=== PATIENT | female | born 1945 | race Caucasian/White ===

== ENCOUNTER 2017-05-01 17:29 | Inpatient (IN) | payer MEDICARE, MEDICAID ==
[~2017-05-01] VITALS: Ht 152.4 cm; Wt 221.0 kg
[~2017-05-01 17:29] MED LIST: ACET-784 PO; BENZ1TAB10 PO; HYDR25TA PO; LOSA25TA21 PO; PALI1.5T PO; PROP20 PO; REPA2 PO; TRAZ-144 PO
[2017-05-01] MEDS ORDERED: LORazepam 2 MG TABLET PO PRN (17:45)
[2017-05-01] MEDS ORDERED: HALOPERIDOL 5 MG TABLET PO PRN (17:45)
[2017-05-01 18:46] LABS: GLUCOSE,POINT OF CARE 125 MG/DL (70-110)
[2017-05-01 19:23] VITALS: BP 132/79
[2017-05-01] MEDS ORDERED: INFLUENZA VIRUS VACCINE QVS 2017-18 (3YR+)/PF 60 MCG/0.5 ML SYRINGE IM ONE (20:00)
[2017-05-01] MEDS ORDERED: DEXTROSE 50%-WATER 25 GM/50 ML SYRINGE IVP PRN (22:00)
[2017-05-02] MEDS: ZOLPIDEM TARTRATE 10 MG TABLET PO PRN (01:57)
[2017-05-02 02:41] VITALS: BP 149/89
[2017-05-02 05:52] LABS: GLUCOSE,POINT OF CARE 137 MG/DL (70-110)
[2017-05-02 06:41] LABS: BASOPHILS % (AUTO) 0.9 % (0.0-2.0); EOSINOPHILS % (AUTO) 1.3 % (1.0-6.0); HEMATOCRIT 41.1 % (36-46); HEMOGLOBIN 13.4 g/dL (12.0-16.0); LYMPHOCYTES # (AUTO) 2.2 K/uL (1.0-4.8); LYMPHOCYTES % (AUTO) 31.7 % (22.0-44.0); MEAN CORPUSCULAR HEMOGLOBIN 27.2 pg (26.0-34.0); MEAN CORPUSCULAR HGB CONC 32.6 G/dL (31.0-37.0); MEAN CORPUSCULAR VOLUME 83 fL (80-100); MONOCYTES # (AUTO) 0.5 K/uL (0.1-1.0); MONOCYTES % (AUTO) 7.8 % (2.0-9.0); NEUTROPHILS % (AUTO) 58.3 % (40.0-70.0); PLATELET COUNT (AUTO) 247 K/uL (150-450); RED BLOOD CELL COUNT(AUTO) 4.92 MIL/uL (4.00-5.20); RED CELL DISTRIBUTION WIDTH 15.8 % (11.5-14.5); WHITE BLOOD COUNT (AUTO) 6.8 K/uL (4.5-11.0)
[2017-05-02 06:55] LABS: ALBUMIN 3.4 g/dL (3.4-5.0); BILIRUBIN,TOTAL 0.4 mg/dL (0.1-1.0); CALCIUM, TOTAL 9.4 mg/dL (8.8-10.5); CREATININE 1.16 mg/dL (0.60-1.30); POTASSIUM 4.4 mmol/L (3.5-5.1); TOTAL PROTEIN, SERUM 7.9 g/dL (6.4-8.2)
[2017-05-02 08:00] VITALS: BP 143/90
[2017-05-02] MEDS ORDERED: LOPERAMIDE HCL 2 MG CAPSULE PO PRN (09:15)
[2017-05-02] MEDS ORDERED: BENZOCAINE/MENTHOL LOZENGE [8 LOZENGES/PACKET] MM PRN (09:15)
[2017-05-02] MEDS ORDERED: CloNIDine HCL 0.1 MG TABLET PO PRN (09:15)
[2017-05-02] MEDS ORDERED: ACETAMINOPHEN 325 MG TABLET PO PRN (09:15)
[2017-05-02] MEDS ORDERED: MAGNESIUM HYDROXIDE SUSPENSION 30 ML UDCUP PO PRN (09:15)
[2017-05-02] MEDS ORDERED: IBUPROFEN 600 MG TABLET PO PRN (09:15)
[2017-05-02] MEDS ORDERED: BACITRACIN 28.4 GM OINTMENT TP PRN (09:15)
[2017-05-02] MEDS ORDERED: PETROLATUM,WHITE 71 GM JELLY TP PRN (09:15)
[2017-05-02] MEDS ORDERED: ONDANSETRON HCL 4 MG TABLET PO PRN (09:15)
[2017-05-02] MEDS ORDERED: MAG HYDROX/AL HYDROX/SIMETH ES 30 ML SUSPENSION UDCUP PO PRN (09:15)
[2017-05-02] MEDS ORDERED: ALBUTEROL SULFATE HFA 90 MCG/PUFF 8 GM INHALER IH PRN (09:15)
[2017-05-02] MEDS: LOSARTAN POTASSIUM 25 MG TABLET PO SCH (11:43)
[2017-05-02 11:48] LABS: GLUCOSE,POINT OF CARE 232 MG/DL (70-110)
[2017-05-02] MEDS: INSULIN ASPART 100 UNITS/ML SQ PRN ×2 (12:34→17:18)
[2017-05-02 17:06] VITALS: BP 141/87
[2017-05-02] MEDS: REPAGLINIDE 2 MG TABLET PO SCH (17:13)
[2017-05-02] MEDS: PROPRANOLOL HCL 20 MG TABLET PO SCH (17:14)
[2017-05-02 17:17] LABS: GLUCOSE,POINT OF CARE 141 MG/DL (70-110)
[2017-05-02] MEDS: PALIPERIDONE 3 MG ER TABLET PO SCH (21:31)
[2017-05-02] MEDS: TraZODone HCL 150 MG TABLET PO SCH (21:31)
[2017-05-03 05:37] LABS: GLUCOSE COMMENT 1 Received Meds; GLUCOSE,POINT OF CARE 153 MG/DL (70-110)
[2017-05-03] MEDS: INSULIN ASPART 100 UNITS/ML SQ PRN ×4 (07:01→20:32)
[2017-05-03] MEDS: REPAGLINIDE 2 MG TABLET PO SCH ×2 (07:01→17:20)
[2017-05-03 08:21] VITALS: BP 151/74
[2017-05-03] MEDS: OMEGA-3/DHA/EPA/FISH OIL 1,000 MG CAPSULE PO SCH (09:00)
[2017-05-03] MEDS: LOSARTAN POTASSIUM 25 MG TABLET PO SCH (09:00)
[2017-05-03] MEDS: PROPRANOLOL HCL 20 MG TABLET PO SCH ×3 (09:00→16:27)
[2017-05-03] MEDS: OMEPRAZOLE 20 MG CAPSULE PO SCH (09:00)
[2017-05-03] MEDS: CHOLECALCIFEROL (VIT D3) 1,000 UNITS TABLET PO SCH (09:00)
[2017-05-03] MEDS: DOCUSATE SODIUM 100 MG CAPSULE PO SCH (09:00)
[2017-05-03 11:33] LABS: GLUCOSE COMMENT 1 Received Meds; GLUCOSE,POINT OF CARE 225 MG/DL (70-110)
[2017-05-03 12:08] VITALS: BP 142/89
[2017-05-03 16:32] LABS: GLUCOSE COMMENT 1 Received Meds; GLUCOSE,POINT OF CARE 175 MG/DL (70-110)
[2017-05-03] MEDS: TraZODone HCL 150 MG TABLET PO SCH (20:30)
[2017-05-03] MEDS: PALIPERIDONE 3 MG ER TABLET PO SCH (20:30)
[2017-05-03 20:38] LABS: GLUCOSE COMMENT 1 Received Meds; GLUCOSE,POINT OF CARE 214 MG/DL (70-110)
[2017-05-04 05:33] LABS: GLUCOSE,POINT OF CARE 173 MG/DL (70-110)
[2017-05-04] MEDS: REPAGLINIDE 2 MG TABLET PO SCH ×2 (06:38→16:59)
[2017-05-04] MEDS: INSULIN ASPART 100 UNITS/ML SQ PRN ×4 (06:45→21:59)
[2017-05-04 08:30] VITALS: BP 128/65
[2017-05-04] MEDS: OMEPRAZOLE 20 MG CAPSULE PO SCH ×2 (09:00→11:45)
[2017-05-04] MEDS: OMEGA-3/DHA/EPA/FISH OIL 1,000 MG CAPSULE PO SCH ×2 (09:00→11:44)
[2017-05-04] MEDS: LOSARTAN POTASSIUM 25 MG TABLET PO SCH ×2 (09:00→11:44)
[2017-05-04] MEDS: PROPRANOLOL HCL 20 MG TABLET PO SCH ×3 (09:00→17:00)
[2017-05-04] MEDS: DOCUSATE SODIUM 100 MG CAPSULE PO SCH ×2 (09:00→11:44)
[2017-05-04] MEDS: CHOLECALCIFEROL (VIT D3) 1,000 UNITS TABLET PO SCH ×2 (09:00→11:44)
[2017-05-04 11:35] VITALS: BP 167/81
[2017-05-04 11:43] LABS: GLUCOSE,POINT OF CARE 251 MG/DL (70-110)
[2017-05-04 13:31] VITALS: BP 140/84
[2017-05-04 16:37] VITALS: BP 131/80
[2017-05-04 17:02] LABS: GLUCOSE,POINT OF CARE 220 MG/DL (70-110)
[2017-05-04] MEDS: PALIPERIDONE 3 MG ER TABLET PO SCH (21:58)
[2017-05-04] MEDS: TraZODone HCL 150 MG TABLET PO SCH (21:58)
[2017-05-04 22:02] LABS: GLUCOSE,POINT OF CARE 165 MG/DL (70-110)
[2017-05-05 05:33] LABS: GLUCOSE COMMENT 1 Received Meds; GLUCOSE,POINT OF CARE 141 MG/DL (70-110)
[2017-05-05] MEDS: REPAGLINIDE 2 MG TABLET PO SCH ×2 (07:04→17:02)
[2017-05-05] MEDS: INSULIN ASPART 100 UNITS/ML SQ PRN ×4 (07:06→21:10)
[2017-05-05 09:18] LABS: CALCIUM, TOTAL 8.8 mg/dL (8.8-10.5); CREATININE 1.11 mg/dL (0.60-1.30); POTASSIUM 4.5 mmol/L (3.5-5.1)
[2017-05-05 09:50] VITALS: BP 167/90
[2017-05-05] MEDS: OMEGA-3/DHA/EPA/FISH OIL 1,000 MG CAPSULE PO SCH (09:53)
[2017-05-05] MEDS: PROPRANOLOL HCL 20 MG TABLET PO SCH ×3 (09:54→17:02)
[2017-05-05] MEDS: LOSARTAN POTASSIUM 25 MG TABLET PO SCH (09:54)
[2017-05-05] MEDS: OMEPRAZOLE 20 MG CAPSULE PO SCH (09:54)
[2017-05-05] MEDS: CHOLECALCIFEROL (VIT D3) 1,000 UNITS TABLET PO SCH (09:54)
[2017-05-05] MEDS: DOCUSATE SODIUM 100 MG CAPSULE PO SCH (09:55)
[2017-05-05 11:23] LABS: GLUCOSE,POINT OF CARE 183 MG/DL (70-110)
[2017-05-05 13:15] VITALS: BP 127/60
[2017-05-05 16:41] VITALS: BP 143/79
[2017-05-05 17:22] LABS: GLUCOSE,POINT OF CARE 197 MG/DL (70-110)
[2017-05-05] MEDS: TraZODone HCL 150 MG TABLET PO SCH (21:10)
[2017-05-05] MEDS: PALIPERIDONE 3 MG ER TABLET PO SCH (21:10)
[2017-05-05 21:13] LABS: GLUCOSE,POINT OF CARE 245 MG/DL (70-110)
[2017-05-06 06:19] VITALS: BP 160/83
[2017-05-06] MEDS: REPAGLINIDE 2 MG TABLET PO SCH ×2 (06:49→17:02)
[2017-05-06] MEDS: INSULIN ASPART 100 UNITS/ML SQ PRN ×4 (06:50→21:06)
[2017-05-06 07:07] LABS: GLUCOSE COMMENT 1 Received Meds; GLUCOSE,POINT OF CARE 151 MG/DL (70-110)
[2017-05-06] MEDS ORDERED: LOSARTAN POTASSIUM 25 MG TABLET PO SCH (09:00)
[2017-05-06] MEDS: OMEPRAZOLE 20 MG CAPSULE PO SCH (10:21)
[2017-05-06] MEDS: DOCUSATE SODIUM 100 MG CAPSULE PO SCH (10:21)
[2017-05-06] MEDS: CHOLECALCIFEROL (VIT D3) 1,000 UNITS TABLET PO SCH (10:21)
[2017-05-06] MEDS: PROPRANOLOL HCL 20 MG TABLET PO SCH ×3 (10:22→17:01)
[2017-05-06] MEDS: LOSARTAN POTASSIUM 25 MG TABLET PO SCH (10:22)
[2017-05-06] MEDS: OMEGA-3/DHA/EPA/FISH OIL 1,000 MG CAPSULE PO SCH (10:22)
[2017-05-06 12:17] LABS: GLUCOSE,POINT OF CARE 252 MG/DL (70-110)
[2017-05-06 14:22] VITALS: BP 140/99
[2017-05-06 17:12] LABS: GLUCOSE COMMENT 1 Received Meds; GLUCOSE,POINT OF CARE 200 MG/DL (70-110)
[2017-05-06] MEDS: TraZODone HCL 150 MG TABLET PO SCH (20:25)
[2017-05-06] MEDS: PALIPERIDONE 3 MG ER TABLET PO SCH (20:26)
[2017-05-06 20:47] LABS: GLUCOSE,POINT OF CARE 140 MG/DL (70-110)
[2017-05-06 21:33] VITALS: BP 157/76
[2017-05-07 03:24] VITALS: BP 159/76
[2017-05-07 05:37] LABS: GLUCOSE COMMENT 1 Received Meds; GLUCOSE,POINT OF CARE 187 MG/DL (70-110)
[2017-05-07] MEDS: REPAGLINIDE 2 MG TABLET PO SCH ×2 (06:56→17:29)
[2017-05-07] MEDS: INSULIN ASPART 100 UNITS/ML SQ PRN ×3 (06:59→17:48)
[2017-05-07 08:05] VITALS: BP 134/83
[2017-05-07] MEDS: PROPRANOLOL HCL 20 MG TABLET PO SCH ×3 (10:06→17:28)
[2017-05-07] MEDS: OMEGA-3/DHA/EPA/FISH OIL 1,000 MG CAPSULE PO SCH (10:07)
[2017-05-07] MEDS: CHOLECALCIFEROL (VIT D3) 1,000 UNITS TABLET PO SCH (10:07)
[2017-05-07] MEDS: OMEPRAZOLE 20 MG CAPSULE PO SCH (10:07)
[2017-05-07] MEDS: DOCUSATE SODIUM 100 MG CAPSULE PO SCH (10:08)
[2017-05-07 11:02] LABS: GLUCOSE,POINT OF CARE 348 MG/DL (70-110)
[2017-05-07] MEDS: LOSARTAN POTASSIUM 25 MG TABLET PO SCH (11:44)
[2017-05-07 16:15] VITALS: BP 150/70
[2017-05-07 17:38] LABS: GLUCOSE COMMENT 1 FASTING; GLUCOSE,POINT OF CARE 184 MG/DL (70-110)
[2017-05-07] MEDS: PALIPERIDONE 3 MG ER TABLET PO SCH (21:20)
[2017-05-07] MEDS: TraZODone HCL 150 MG TABLET PO SCH (21:20)
[2017-05-08 03:15] VITALS: BP 182/99
[2017-05-08] MEDS: ZOLPIDEM TARTRATE 10 MG TABLET PO PRN (03:36)
[2017-05-08 04:00] VITALS: BP 134/92
[2017-05-08 06:38] LABS: GLUCOSE,POINT OF CARE 135 MG/DL (70-110)
[2017-05-08] MEDS: REPAGLINIDE 2 MG TABLET PO SCH ×2 (06:47→16:19)
[2017-05-08 08:05] VITALS: BP 138/82
[2017-05-08] MEDS: DOCUSATE SODIUM 100 MG CAPSULE PO SCH (09:00)
[2017-05-08] MEDS: OMEGA-3/DHA/EPA/FISH OIL 1,000 MG CAPSULE PO SCH (09:10)
[2017-05-08] MEDS: LOSARTAN POTASSIUM 25 MG TABLET PO SCH (09:10)
[2017-05-08] MEDS: PROPRANOLOL HCL 20 MG TABLET PO SCH ×3 (09:10→16:19)
[2017-05-08] MEDS: OMEPRAZOLE 20 MG CAPSULE PO SCH (09:10)
[2017-05-08] MEDS: CHOLECALCIFEROL (VIT D3) 1,000 UNITS TABLET PO SCH (09:10)
[2017-05-08 16:27] LABS: GLUCOSE COMMENT 1 FASTING; GLUCOSE COMMENT 2 Received Meds; GLUCOSE,POINT OF CARE 235 MG/DL (70-110)
[2017-05-08 16:46] VITALS: BP 145/78
[2017-05-08] MEDS: INSULIN ASPART 100 UNITS/ML SQ PRN ×2 (17:40→21:19)
[2017-05-08] MEDS: TraZODone HCL 150 MG TABLET PO SCH (20:23)
[2017-05-08] MEDS: PALIPERIDONE 3 MG ER TABLET PO SCH (20:24)
[2017-05-08 21:17] LABS: GLUCOSE COMMENT 1 FASTING; GLUCOSE,POINT OF CARE 283 MG/DL (70-110)
[2017-05-08] MEDS ORDERED: PALI3 PO (23:11)
[2017-05-08] MEDS ORDERED: OMEP20 PO (23:15)
[2017-05-08] MEDS ORDERED: DSS100 PO (23:15)
[2017-05-08] MEDS ORDERED: OMEG-135 PO (23:16)
[2017-05-08] MEDS ORDERED: VITAD1000 PO (23:17)
[2017-05-09 04:25] VITALS: BP 122/64
[2017-05-09 05:42] LABS: GLUCOSE COMMENT 1 Received Meds; GLUCOSE,POINT OF CARE 143 MG/DL (70-110)
[2017-05-09] MEDS: REPAGLINIDE 2 MG TABLET PO SCH (06:46)
[2017-05-09] MEDS: INSULIN ASPART 100 UNITS/ML SQ PRN (06:55)
[2017-05-09 08:20] VITALS: BP 138/64
[2017-05-09] MEDS: PROPRANOLOL HCL 20 MG TABLET PO SCH ×2 (08:22→12:09)
[2017-05-09] MEDS: OMEGA-3/DHA/EPA/FISH OIL 1,000 MG CAPSULE PO SCH (08:22)
[2017-05-09] MEDS: LOSARTAN POTASSIUM 25 MG TABLET PO SCH (08:22)
[2017-05-09] MEDS: DOCUSATE SODIUM 100 MG CAPSULE PO SCH (08:24)
[2017-05-09] MEDS: CHOLECALCIFEROL (VIT D3) 1,000 UNITS TABLET PO SCH (08:24)
[2017-05-09] MEDS: OMEPRAZOLE 20 MG CAPSULE PO SCH (08:25)
[2017-05-09 10:57] LABS: GLUCOSE COMMENT 1 Received Meds; GLUCOSE,POINT OF CARE 193 MG/DL (70-110)
== END 2017-05-09 14:00 | disposition home or self-care (01) | DRG 750 ==
LOC: 3EX 17:44 → 3EI 20:50
PROVIDERS: ADMIT Psychiatry & Neurology Psychiatry; ATTEND Psychiatry & Neurology Psychiatry
DX: F25.9 Schizoaffective disorder, unspecified (principal); E11.22 Type 2 diabetes mellitus with diabetic chronic kidney disease; E11.65 Type 2 diabetes mellitus with hyperglycemia; N18.3 Chronic kidney disease, stage 3 (moderate); I12.9 Hypertensive chronic kidney disease with stage 1 through stage 4 chronic kidney disease, or unspecified chronic kidney disease; E55.9 Vitamin D deficiency, unspecified; E03.9 Hypothyroidism, unspecified; E78.5 Hyperlipidemia, unspecified; R26.9 Unspecified abnormalities of gait and mobility; F32.9 Major depressive disorder, single episode, unspecified; G47.00 Insomnia, unspecified; M19.90 Unspecified osteoarthritis, unspecified site; K59.00 Constipation, unspecified; Z28.21 Immunization not carried out because of patient refusal; Z56.0 Unemployment, unspecified; Z79.899 Other long term (current) drug therapy
CPT/HCPCS: 82962

== ENCOUNTER 2017-05-10 21:54 | Emergency (ER) | payer MEDICARE, OTHER ==
[~2017-05-10] VITALS: Ht 157.5 cm; Wt 100.0 kg
[~2017-05-10 21:54] MED LIST changes: -ACET-784 PO; -BENZ1TAB10 PO; +DSS100 PO; -HYDR25TA PO; +OMEG-135 PO; +OMEP20 PO; -PALI1.5T PO; +PALI3 PO; +VITAD1000 PO
[2017-05-10 22:13] LABS: GLUCOSE,POINT OF CARE 105 MG/DL (70-110)
[2017-05-10] MEDS ORDERED: ACETAMINOPHEN 325 MG TABLET PO ONE (22:15)
[2017-05-10 23:03] LABS: EOSINOPHILS % (AUTO) 0.2 % (1.0-6.0); HEMATOCRIT 34.2 % (36-46); HEMOGLOBIN 11.3 g/dL (12.0-16.0); LYMPHOCYTES # (AUTO) 1.2 K/uL (1.0-4.8); LYMPHOCYTES % (AUTO) 16.9 % (22.0-44.0); MEAN CORPUSCULAR HEMOGLOBIN 27.3 pg (26.0-34.0); MEAN CORPUSCULAR HGB CONC 33.2 G/dL (31.0-37.0); MEAN CORPUSCULAR VOLUME 82 fL (80-100); MONOCYTES % (AUTO) 13.2 % (2.0-9.0); NEUTROPHILS # (AUTO) 5.1 K/uL (1.8-7.7); NEUTROPHILS % (AUTO) 69.7 % (40.0-70.0); PLATELET COUNT (AUTO) 168 K/uL (150-450); RED BLOOD CELL COUNT(AUTO) 4.16 MIL/uL (4.00-5.20); WHITE BLOOD COUNT (AUTO) 7.3 K/uL (4.5-11.0)
[2017-05-10 23:20] LABS: CALCIUM, TOTAL 8.7 mg/dL (8.8-10.5); CREATININE 1.14 mg/dL (0.60-1.30); POTASSIUM 4.2 mmol/L (3.5-5.1)
[2017-05-10] MEDS ORDERED: SODIUM CHLORIDE 0.9% 500 ML IV ONE (23:45)
[2017-05-10 23:51] LABS: ALBUMIN 2.8 g/dL (3.4-5.0); BILIRUBIN,TOTAL 0.4 mg/dL (0.1-1.0); ORIG DRAW (USER) PTCARESTAF; TOTAL PROTEIN, SERUM 6.7 g/dL (6.4-8.2)
[2017-05-11 01:21] LABS: INFLUENZA TYPE B NEGATIVE FOR TYPE B (NEGATIVE)
[2017-05-11 01:28] LABS: APPEARANCE,URINE CLEAR (CLEAR); GLUCOSE, URINE (UA) 500 mg/dL (NEGATIVE); KETONES,URINE 15 mg/dL (NEGATIVE); LEUKOCYTE ESTERASE ,URINE NEGATIVE (NEGATIVE); OCCULT BLOOD,URINE SMALL (NEGATIVE); PROTEIN,URINE POS 1+ (NEGATIVE)
[2017-05-11 01:36] LABS: RBC,URINE 0-2 /HPF (0-2); SQUAMOUS EPITHELIAL CELL,UR Few /LPF (None Seen); WBC,URINE 0-2 /HPF (0-5)
[2017-05-11 02:00] VITALS: BP 132/70
== END 2017-05-11 02:34 | disposition home or self-care (01) ==
LOC: EMS 21:55
DX: J06.9 Acute upper respiratory infection, unspecified (principal); J40 Bronchitis, not specified as acute or chronic; I10 Essential (primary) hypertension; E11.9 Type 2 diabetes mellitus without complications; K21.9 Gastro-esophageal reflux disease without esophagitis
CPT/HCPCS: 36415; 71010; 80053; 81001; 82962; 83605; 83690; 83880; 84484; 85025; 87040; 87804; 96360; 99285; J7040

== ENCOUNTER 2017-05-15 12:02 | Emergency (ER) | payer MEDICARE, OTHER ==
[~2017-05-15] VITALS: Ht 157.5 cm; Wt 100.0 kg
[2017-05-15 12:32] LABS: GLUCOSE,POINT OF CARE 124 MG/DL (70-110)
[2017-05-15 14:02] LABS: APPEARANCE,URINE CLOUDY (CLEAR); BILIRUBIN,URINE NEGATIVE (NEGATIVE); GLUCOSE, URINE (UA) >=1000 mg/dL (NEGATIVE); KETONES,URINE NEGATIVE (NEGATIVE); NITRATE,URINE POSITIVE (NEGATIVE); OCCULT BLOOD,URINE SMALL (NEGATIVE); PROTEIN,URINE SEE CONFIRM (NEGATIVE)
[2017-05-15 14:06] LABS: AMPHET/METH SCREEN,URINE NEGATIVE (NEGATIVE); BARBITURATE SCREEN, URINE NEGATIVE (NEGATIVE); BENZODIAZEPINES SCREEN,URINE NEGATIVE (NEGATIVE); CANNABINOID SCREEN,URINE NEGATIVE (NEGATIVE); COCAINE SCREEN,URINE NEGATIVE (NEGATIVE); METHADONE SCREEN, URINE NEGATIVE (NEGATIVE); OPIATE SCREEN,URINE NEGATIVE (NEGATIVE)
[2017-05-15 14:07] LABS: PHENCYCLIDINE SCREEN,URINE NEGATIVE (NEGATIVE)
[2017-05-15 14:13] LABS: BACTERIA,URINE Many /HPF (None Seen); LEUKOCYTE ESTERASE ,URINE MODERATE (NEGATIVE); SULFOSALICYLIC ACID,URINE 2+ (Negative)
[2017-05-15 14:14] LABS: SQUAMOUS EPITHELIAL CELL,UR Few /LPF (None Seen)
[2017-05-15 14:16] LABS: BASOPHILS % (AUTO) 0.3 % (0.0-2.0); EOSINOPHILS % (AUTO) 0.5 % (1.0-6.0); HEMATOCRIT 35.5 % (36-46); HEMOGLOBIN 11.7 g/dL (12.0-16.0); LYMPHOCYTES # (AUTO) 2.5 K/uL (1.0-4.8); LYMPHOCYTES % (AUTO) 43.5 % (22.0-44.0); MEAN CORPUSCULAR HEMOGLOBIN 27.2 pg (26.0-34.0); MEAN CORPUSCULAR HGB CONC 32.9 G/dL (31.0-37.0); MEAN CORPUSCULAR VOLUME 83 fL (80-100); MONOCYTES # (AUTO) 0.6 K/uL (0.1-1.0); NEUTROPHILS # (AUTO) 2.5 K/uL (1.8-7.7); NEUTROPHILS % (AUTO) 44.7 % (40.0-70.0); PLATELET COUNT (AUTO) 200 K/uL (150-450); RED BLOOD CELL COUNT(AUTO) 4.29 MIL/uL (4.00-5.20)
[2017-05-15] MEDS ORDERED: LIDOCAINE HCL/PF 1% 2 ML VIAL IM ONE (14:30)
[2017-05-15] MEDS ORDERED: CefTRIAXone SODIUM 1 GM/VIAL IM ONE (14:30)
[2017-05-15 14:34] LABS: ANION GAP 11 mmol/L (8-16); CALCIUM, TOTAL 8.4 mg/dL (8.8-10.5); CARBON DIOXIDE 26 mmol/L (22-29); CHLORIDE 106 mmol/L (98-107); CREATININE 0.99 mg/dL (0.60-1.30); GLOMERULAR FILTR. RATE CALC 55 mL/min (>60); GLUCOSE,RANDOM 85 mg/dL (70-110); POTASSIUM 3.8 mmol/L (3.5-5.1); SODIUM SERUM 143 mmol/L (136-145); UREA NITROGEN, BLOOD 13 mg/dL (7-18)
[2017-05-15 14:37] LABS: ALANINE AMINOTRANSFERASE 28 U/L (12-78); ALBUMIN 2.8 g/dL (3.4-5.0); ALKALINE PHOSPHATASE 100 U/L (46-116); ASPARTATE AMINOTRANSFERASE 31 U/L (15-37); BILIRUBIN,TOTAL 0.4 mg/dL (0.1-1.0); TOTAL PROTEIN, SERUM 7.1 g/dL (6.4-8.2)
[2017-05-15 15:05] VITALS: BP 146/70
== END 2017-05-15 15:41 | disposition home or self-care (01) ==
LOC: EMS 12:04
DX: N39.0 Urinary tract infection, site not specified (principal); F20.0 Paranoid schizophrenia; I12.9 Hypertensive chronic kidney disease with stage 1 through stage 4 chronic kidney disease, or unspecified chronic kidney disease; N18.9 Chronic kidney disease, unspecified; K21.9 Gastro-esophageal reflux disease without esophagitis; G62.9 Polyneuropathy, unspecified; Z79.899 Other long term (current) drug therapy
CPT/HCPCS: 36415; 80053; 80307; 81001; 82962; 85025; 87077; 87086; 87186; 96372; 99284; G0480; J0696; J3490

== ENCOUNTER 2017-08-26 13:29 | Inpatient (IN) | payer MEDICARE, MEDICAID ==
[~2017-08-26] VITALS: Ht 154.9 cm; Wt 98.1 kg
[~2017-08-26 13:29] MED LIST changes: -PROP20 PO; +PROP20TA18 PO
[2017-08-26 13:57] VITALS: BP 147/80
[2017-08-26] MEDS ORDERED: HALOPERIDOL 5 MG TABLET PO PRN (14:00)
[2017-08-26] MEDS ORDERED: ZOLPIDEM TARTRATE 10 MG TABLET PO PRN (14:00)
[2017-08-26] MEDS ORDERED: PALI6 PO (14:53)
[2017-08-26] MEDS ORDERED: BENZ1TAB10 PO (14:53)
[2017-08-26] MEDS ORDERED: METF500T4 PO (14:53)
[2017-08-26] MEDS ORDERED: CANA100T PO (14:53)
[2017-08-26] MEDS ORDERED: -PHARMACY VACCINE NOTE- MISC ONE (15:15)
[2017-08-26 15:51] VITALS: BP 147/62
[2017-08-26 16:27] VITALS: BP 125/78
[2017-08-26] MEDS ORDERED: IBUPROFEN 600 MG TABLET PO PRN (22:00)
[2017-08-26] MEDS ORDERED: BENZOCAINE/MENTHOL LOZENGE MM PRN (22:00)
[2017-08-26] MEDS ORDERED: ALBUTEROL SULFATE HFA 90 MCG/PUFF 8 GM INHALER IH PRN (22:00)
[2017-08-26] MEDS ORDERED: MAG HYDROX/AL HYDROX/SIMETH ES 30 ML SUSPENSION UDCUP PO PRN (22:00)
[2017-08-26] MEDS ORDERED: MAGNESIUM HYDROXIDE SUSPENSION 30 ML UDCUP PO PRN (22:00)
[2017-08-26] MEDS ORDERED: PETROLATUM,WHITE 71 GM JELLY TP PRN (22:00)
[2017-08-26] MEDS ORDERED: GLUCAGON,HUMAN RECOMBINANT 1 MG VIAL IM PRN (22:00)
[2017-08-26] MEDS ORDERED: ACETAMINOPHEN 325 MG TABLET PO PRN (22:00)
[2017-08-26] MEDS ORDERED: CloNIDine HCL 0.1 MG TABLET PO PRN (22:00)
[2017-08-26] MEDS ORDERED: LOPERAMIDE HCL 2 MG CAPSULE PO PRN (22:00)
[2017-08-26] MEDS ORDERED: BACITRACIN 28.4 GM OINTMENT TP PRN (22:00)
[2017-08-26] MEDS ORDERED: ONDANSETRON HCL 4 MG TABLET PO PRN (22:00)
[2017-08-27 05:39] VITALS: BP_SYST 125; BP_SYST 139; BP_DIAS 76
[2017-08-27] MEDS: INSULIN LISPRO 100 UNITS/ML SQ PRN ×4 (06:28→21:10)
[2017-08-27 06:38] LABS: GLUCOMETER DEV NAME(LOC) BV3S 2; GLUCOSE,POINT OF CARE 162 MG/DL (70-110)
[2017-08-27] MEDS: DOCUSATE SODIUM 100 MG CAPSULE PO SCH (08:09)
[2017-08-27] MEDS: OMEPRAZOLE 20 MG CAPSULE PO SCH (08:09)
[2017-08-27 08:56] VITALS: BP 131/73
[2017-08-27] MEDS: OLANZapine 2.5 MG TABLET PO SCH (10:30)
[2017-08-27 14:13] LABS: GLUCOMETER DEV NAME(LOC) BV3S 2; GLUCOSE,POINT OF CARE 251 MG/DL (70-110)
[2017-08-27 16:18] VITALS: BP 136/73
[2017-08-27 17:08] LABS: GLUCOMETER DEV NAME(LOC) BV3S 2; GLUCOSE,POINT OF CARE 173 MG/DL (70-110)
[2017-08-27] MEDS ORDERED: TRAZ150 PO (20:21)
[2017-08-27 20:52] LABS: GLUCOMETER DEV NAME(LOC) BV3S 2; GLUCOSE,POINT OF CARE 212 MG/DL (70-110)
[2017-08-28] MEDS: LEVOTHYROXINE SODIUM 25 MCG TABLET PO SCH (06:32)
[2017-08-28] MEDS: REPAGLINIDE 2 MG TABLET PO SCH ×2 (06:32→16:39)
[2017-08-28 06:38] LABS: GLUCOMETER DEV NAME(LOC) BV3S 2; GLUCOSE,POINT OF CARE 157 MG/DL (70-110)
[2017-08-28 06:39] VITALS: BP 130/78
[2017-08-28] MEDS: INSULIN LISPRO 100 UNITS/ML SQ PRN (06:39)
[2017-08-28 08:15] VITALS: BP 129/89
[2017-08-28] MEDS: OLANZapine 2.5 MG TABLET PO SCH (08:35)
[2017-08-28] MEDS: DOCUSATE SODIUM 100 MG CAPSULE PO SCH (08:35)
[2017-08-28] MEDS: OMEPRAZOLE 20 MG CAPSULE PO SCH (08:35)
[2017-08-28] MEDS: LOSARTAN POTASSIUM 25 MG TABLET PO SCH (08:35)
[2017-08-28] MEDS: CHOLECALCIFEROL (VIT D3) 1,000 UNITS TABLET PO SCH (08:35)
[2017-08-28 16:20] VITALS: BP 145/80
[2017-08-29] MEDS: LEVOTHYROXINE SODIUM 25 MCG TABLET PO SCH (06:09)
[2017-08-29] MEDS: REPAGLINIDE 2 MG TABLET PO SCH ×2 (06:42→16:43)
[2017-08-29 08:00] VITALS: BP 150/84
[2017-08-29] MEDS: DOCUSATE SODIUM 100 MG CAPSULE PO SCH (09:20)
[2017-08-29] MEDS: CHOLECALCIFEROL (VIT D3) 1,000 UNITS TABLET PO SCH (09:20)
[2017-08-29] MEDS: OMEPRAZOLE 20 MG CAPSULE PO SCH (09:20)
[2017-08-29] MEDS: LOSARTAN POTASSIUM 25 MG TABLET PO SCH (09:20)
[2017-08-29] MEDS: OLANZapine 2.5 MG TABLET PO SCH (09:21)
[2017-08-29 12:52] LABS: GLUCOMETER DEV NAME(LOC) BV3S 2; GLUCOSE,POINT OF CARE 215 MG/DL (70-110)
[2017-08-29 16:08] VITALS: BP 147/100
[2017-08-30 06:00] VITALS: BP 138/84
[2017-08-30] MEDS: LORazepam 2 MG TABLET PO PRN ×2 (06:15→16:35)
[2017-08-30] MEDS: LEVOTHYROXINE SODIUM 25 MCG TABLET PO SCH (06:15)
[2017-08-30] MEDS: REPAGLINIDE 2 MG TABLET PO SCH ×2 (06:42→16:54)
[2017-08-30 08:43] VITALS: BP 100/57
[2017-08-30 08:46] LABS: BASOPHILS % (AUTO) 0.4 % (0.0-2.0); EOSINOPHILS % (AUTO) 2.5 % (1.0-6.0); HEMATOCRIT 38.1 % (36-46); HEMOGLOBIN 12.6 g/dL (12.0-16.0); LYMPHOCYTES # (AUTO) 2.3 K/uL (1.0-4.8); LYMPHOCYTES % (AUTO) 36.5 % (22.0-44.0); MEAN CORPUSCULAR HEMOGLOBIN 27.1 pg (26.0-34.0); MEAN CORPUSCULAR HGB CONC 32.9 G/dL (31.0-37.0); MEAN CORPUSCULAR VOLUME 82 fL (80-100); MONOCYTES # (AUTO) 0.5 K/uL (0.1-1.0); MONOCYTES % (AUTO) 8.3 % (2.0-9.0); NEUTROPHILS # (AUTO) 3.2 K/uL (1.8-7.7); NEUTROPHILS % (AUTO) 52.3 % (40.0-70.0); PLATELET COUNT (AUTO) 221 K/uL (150-450); RED BLOOD CELL COUNT(AUTO) 4.64 MIL/uL (4.00-5.20); RED CELL DISTRIBUTION WIDTH 15.7 % (11.5-14.5)
[2017-08-30 09:08] LABS: HEMOGLOBIN A1C 7.8 % (4.5-6.2)
[2017-08-30 09:11] LABS: FREE T4 (FREE THYROXINE) 1.12 ng/dL (0.76-1.46); THYROID STIMULATING HORMONE 1.59 uIU/mL (0.36-3.74)
[2017-08-30] MEDS: DOCUSATE SODIUM 100 MG CAPSULE PO SCH (09:24)
[2017-08-30] MEDS: CHOLECALCIFEROL (VIT D3) 1,000 UNITS TABLET PO SCH (09:24)
[2017-08-30] MEDS: OLANZapine 2.5 MG TABLET PO SCH (09:25)
[2017-08-30] MEDS: OMEPRAZOLE 20 MG CAPSULE PO SCH (09:25)
[2017-08-30] MEDS: LOSARTAN POTASSIUM 25 MG TABLET PO SCH (09:25)
[2017-08-30 09:37] LABS: APPEARANCE,URINE TURBID (CLEAR); BILIRUBIN,URINE NEGATIVE (NEGATIVE); GLUCOSE, URINE (UA) 250 mg/dL (NEGATIVE); KETONES,URINE NEGATIVE (NEGATIVE); LEUKOCYTE ESTERASE ,URINE NEGATIVE (NEGATIVE); NITRATE,URINE NEGATIVE (NEGATIVE); OCCULT BLOOD,URINE NEGATIVE (NEGATIVE); PH,URINE 5.5 (5.0-8.0); PROTEIN,URINE POS 1+ (NEGATIVE); UROBILINOGEN,URINE 0.2 mg/dL (<=1.0)
[2017-08-30 09:59] LABS: AMORPHOUS SEDIMENT,UR Many /LPF (None Seen); BACTERIA,URINE None Seen /HPF (None Seen); RBC,URINE None Seen /HPF (0-2); WBC,URINE None Seen /HPF (0-5)
[2017-08-30 16:06] VITALS: BP 149/82
[2017-08-30 17:35] VITALS: BP 135/80
[2017-08-31] VITALS: BP 140/81
[2017-08-31] MEDS: LORazepam 2 MG TABLET PO PRN ×2 (00:03→09:21)
[2017-08-31] MEDS: LEVOTHYROXINE SODIUM 25 MCG TABLET PO SCH (06:51)
[2017-08-31] MEDS: REPAGLINIDE 2 MG TABLET PO SCH ×2 (06:51→17:04)
[2017-08-31 08:44] LABS: ALBUMIN 3.2 g/dL (3.4-5.0); BILIRUBIN,TOTAL 0.5 mg/dL (0.1-1.0); CALCIUM, TOTAL 8.9 mg/dL (8.8-10.5); CREATININE 1.1 mg/dL (0.60-1.30); POTASSIUM 5.2 mmol/L (3.5-5.1); TOTAL PROTEIN, SERUM 7.7 g/dL (6.4-8.2)
[2017-08-31 09:02] VITALS: BP 136/85
[2017-08-31] MEDS: OLANZapine 2.5 MG TABLET PO SCH (09:21)
[2017-08-31] MEDS: OMEPRAZOLE 20 MG CAPSULE PO SCH (09:21)
[2017-08-31] MEDS: DOCUSATE SODIUM 100 MG CAPSULE PO SCH (09:21)
[2017-08-31] MEDS: CHOLECALCIFEROL (VIT D3) 1,000 UNITS TABLET PO SCH (09:21)
[2017-08-31] MEDS: LOSARTAN POTASSIUM 25 MG TABLET PO SCH (09:21)
[2017-08-31] MEDS ORDERED: SODIUM POLYSTYRENE SULFONATE 15 GM/60 ML SUSPENSION BOTTLE PO ONE (11:15)
[2017-08-31 16:14] VITALS: BP 106/66
[2017-08-31 16:22] LABS: GLUCOMETER DEV NAME(LOC) BV2N3; GLUCOSE,POINT OF CARE 196 MG/DL (70-110)
[2017-08-31] MEDS: INSULIN LISPRO 100 UNITS/ML SQ PRN (17:06)
[2017-08-31 20:53] LABS: GLUCOMETER DEV NAME(LOC) BV2N3; GLUCOSE,POINT OF CARE 221 MG/DL (70-110)
[2017-09-01 03:11] VITALS: BP 118/70
[2017-09-01] MEDS: REPAGLINIDE 2 MG TABLET PO SCH ×2 (06:32→17:06)
[2017-09-01] MEDS: LEVOTHYROXINE SODIUM 25 MCG TABLET PO SCH (06:32)
[2017-09-01 08:33] VITALS: BP 125/90
[2017-09-01] MEDS: OLANZapine 2.5 MG TABLET PO SCH (09:00)
[2017-09-01] MEDS: DOCUSATE SODIUM 100 MG CAPSULE PO SCH (09:00)
[2017-09-01] MEDS: CHOLECALCIFEROL (VIT D3) 1,000 UNITS TABLET PO SCH (09:00)
[2017-09-01] MEDS: OMEPRAZOLE 20 MG CAPSULE PO SCH (09:00)
[2017-09-01] MEDS: LOSARTAN POTASSIUM 25 MG TABLET PO SCH (09:00)
[2017-09-01] MEDS: INSULIN LISPRO 100 UNITS/ML SQ PRN ×2 (12:03→21:18)
[2017-09-01 12:37] LABS: GLUCOMETER DEV NAME(LOC) BV2N3; GLUCOSE,POINT OF CARE 143 MG/DL (70-110)
[2017-09-01 16:14] VITALS: BP 145/82
[2017-09-01 17:17] LABS: GLUCOMETER DEV NAME(LOC) BV2N3; GLUCOSE,POINT OF CARE 125 MG/DL (70-110)
[2017-09-01 20:58] LABS: GLUCOMETER DEV NAME(LOC) BV2N3; GLUCOSE,POINT OF CARE 171 MG/DL (70-110)
[2017-09-02 06:00] VITALS: BP 132/80
[2017-09-02] MEDS: LEVOTHYROXINE SODIUM 25 MCG TABLET PO SCH (07:04)
[2017-09-02] MEDS: REPAGLINIDE 2 MG TABLET PO SCH ×2 (07:04→17:01)
[2017-09-02] MEDS: LOSARTAN POTASSIUM 25 MG TABLET PO SCH (08:57)
[2017-09-02] MEDS: OMEPRAZOLE 20 MG CAPSULE PO SCH (08:57)
[2017-09-02] MEDS: CHOLECALCIFEROL (VIT D3) 1,000 UNITS TABLET PO SCH (08:57)
[2017-09-02] MEDS: DOCUSATE SODIUM 100 MG CAPSULE PO SCH (08:57)
[2017-09-02] MEDS: OLANZapine 2.5 MG TABLET PO SCH (08:58)
[2017-09-02 11:38] LABS: GLUCOMETER DEV NAME(LOC) BV2N3; GLUCOSE,POINT OF CARE 118 MG/DL (70-110)
[2017-09-02 16:19] VITALS: BP 119/65
[2017-09-02] MEDS: LORazepam 2 MG TABLET PO PRN (17:01)
[2017-09-02 17:03] LABS: GLUCOMETER DEV NAME(LOC) BV2N3; GLUCOSE,POINT OF CARE 188 MG/DL (70-110)
[2017-09-02] MEDS: INSULIN LISPRO 100 UNITS/ML SQ PRN ×2 (17:06→21:07)
[2017-09-02 20:48] LABS: GLUCOMETER DEV NAME(LOC) BV2N3; GLUCOSE,POINT OF CARE 231 MG/DL (70-110)
[2017-09-03 03:14] VITALS: BP 120/81
[2017-09-03 03:55] VITALS: BP 118/70
[2017-09-03] MEDS: LORazepam 2 MG TABLET PO PRN (04:03)
[2017-09-03] MEDS: REPAGLINIDE 2 MG TABLET PO SCH ×2 (06:44→17:00)
[2017-09-03] MEDS: LEVOTHYROXINE SODIUM 25 MCG TABLET PO SCH (06:44)
[2017-09-03 08:11] VITALS: BP 123/86
[2017-09-03] MEDS: LOSARTAN POTASSIUM 25 MG TABLET PO SCH (08:15)
[2017-09-03] MEDS: OMEPRAZOLE 20 MG CAPSULE PO SCH (08:16)
[2017-09-03] MEDS: CHOLECALCIFEROL (VIT D3) 1,000 UNITS TABLET PO SCH (08:16)
[2017-09-03] MEDS: DOCUSATE SODIUM 100 MG CAPSULE PO SCH (08:16)
[2017-09-03] MEDS: OLANZapine 2.5 MG TABLET PO SCH (08:16)
[2017-09-03 09:07] LABS: HEMOGLOBIN A1C 8.4 % (4.5-6.2)
[2017-09-03 09:09] LABS: ALANINE AMINOTRANSFERASE 21 U/L (12-78); ALBUMIN 2.7 g/dL (3.4-5.0); ALKALINE PHOSPHATASE 103 U/L (46-116); ANION GAP 6 mmol/L (8-16); ASPARTATE AMINOTRANSFERASE 18 U/L (15-37); BILIRUBIN,TOTAL 0.4 mg/dL (0.1-1.0); CALCIUM, TOTAL 8.2 mg/dL (8.8-10.5); CARBON DIOXIDE 30 mmol/L (22-29); CHLORIDE 108 mmol/L (98-107); FREE T4 (FREE THYROXINE) 1.05 ng/dL (0.76-1.46); GLOMERULAR FILTR. RATE CALC > 60 mL/min (>60); GLUCOSE,RANDOM 114 mg/dL (70-110); POTASSIUM 3.8 mmol/L (3.5-5.1); SODIUM SERUM 144 mmol/L (136-145); THYROID STIMULATING HORMONE 0.96 uIU/mL (0.36-3.74); TOTAL PROTEIN, SERUM 5.7 g/dL (6.4-8.2); UREA NITROGEN, BLOOD 19 mg/dL (7-18)
[2017-09-03] MEDS: INSULIN LISPRO 100 UNITS/ML SQ PRN (11:06)
[2017-09-03 11:07] LABS: GLUCOMETER DEV NAME(LOC) BV2N3; GLUCOSE,POINT OF CARE 201 MG/DL (70-110)
[2017-09-03] MEDS: LACTULOSE 20 GM/30 ML SOLUTION UDCUP PO SCH (16:17)
[2017-09-03 16:35] VITALS: BP 117/83
[2017-09-04] MEDS: LACTULOSE 20 GM/30 ML SOLUTION UDCUP PO SCH ×3 (00:21→16:09)
[2017-09-04 04:53] VITALS: BP 134/76
[2017-09-04] MEDS: LEVOTHYROXINE SODIUM 25 MCG TABLET PO SCH (06:38)
[2017-09-04] MEDS: REPAGLINIDE 2 MG TABLET PO SCH ×2 (06:38→16:52)
[2017-09-04] MEDS: CHOLECALCIFEROL (VIT D3) 1,000 UNITS TABLET PO SCH (08:23)
[2017-09-04] MEDS: OMEPRAZOLE 20 MG CAPSULE PO SCH (08:23)
[2017-09-04] MEDS: LOSARTAN POTASSIUM 25 MG TABLET PO SCH (08:23)
[2017-09-04] MEDS: OLANZapine 2.5 MG TABLET PO SCH (08:23)
[2017-09-04] MEDS: DOCUSATE SODIUM 100 MG CAPSULE PO SCH (08:23)
[2017-09-04 08:31] VITALS: BP 140/89
[2017-09-04 11:02] LABS: GLUCOMETER DEV NAME(LOC) BV2N3; GLUCOSE,POINT OF CARE 172 MG/DL (70-110)
[2017-09-04] MEDS: INSULIN LISPRO 100 UNITS/ML SQ PRN (11:24)
[2017-09-04 16:22] LABS: GLUCOMETER DEV NAME(LOC) BV2N3; GLUCOSE,POINT OF CARE 130 MG/DL (70-110)
[2017-09-04 16:23] VITALS: BP 123/77
[2017-09-05 01:57] VITALS: BP 111/94
[2017-09-05] MEDS: REPAGLINIDE 2 MG TABLET PO SCH ×2 (06:38→16:49)
[2017-09-05] MEDS: LEVOTHYROXINE SODIUM 25 MCG TABLET PO SCH (06:38)
[2017-09-05 08:00] VITALS: BP 162/83
[2017-09-05] MEDS: OLANZapine 2.5 MG TABLET PO SCH (08:07)
[2017-09-05] MEDS: CHOLECALCIFEROL (VIT D3) 1,000 UNITS TABLET PO SCH (08:07)
[2017-09-05] MEDS: DOCUSATE SODIUM 100 MG CAPSULE PO SCH (08:07)
[2017-09-05] MEDS: LACTULOSE 20 GM/30 ML SOLUTION UDCUP PO SCH ×3 (08:07→16:49)
[2017-09-05] MEDS: LOSARTAN POTASSIUM 25 MG TABLET PO SCH (08:07)
[2017-09-05] MEDS: OMEPRAZOLE 20 MG CAPSULE PO SCH (08:07)
[2017-09-05 09:27] VITALS: BP 115/67
[2017-09-05] MEDS: INSULIN LISPRO 100 UNITS/ML SQ PRN (11:10)
[2017-09-05 15:57] LABS: GLUCOMETER DEV NAME(LOC) BV2N3; GLUCOSE,POINT OF CARE 167 MG/DL (70-110)
[2017-09-05 16:58] LABS: GLUCOMETER DEV NAME(LOC) BV2N3; GLUCOSE,POINT OF CARE 111 MG/DL (70-110)
[2017-09-05 17:00] VITALS: BP 124/63
[2017-09-05] MEDS: BACITRACIN 28.4 GM OINTMENT TP SCH (17:17)
[2017-09-05 19:31] VITALS: BP 124/63
[2017-09-06 03:53] VITALS: BP 130/86
[2017-09-06] MEDS: LEVOTHYROXINE SODIUM 25 MCG TABLET PO SCH (06:31)
[2017-09-06] MEDS: REPAGLINIDE 2 MG TABLET PO SCH ×2 (06:31→16:07)
[2017-09-06] MEDS: CHOLECALCIFEROL (VIT D3) 1,000 UNITS TABLET PO SCH (08:40)
[2017-09-06] MEDS: LOSARTAN POTASSIUM 25 MG TABLET PO SCH (08:40)
[2017-09-06] MEDS: OMEPRAZOLE 20 MG CAPSULE PO SCH (08:40)
[2017-09-06] MEDS: DOCUSATE SODIUM 100 MG CAPSULE PO SCH (08:40)
[2017-09-06] MEDS: BACITRACIN 28.4 GM OINTMENT TP SCH ×2 (08:41→16:07)
[2017-09-06] MEDS: OLANZapine 2.5 MG TABLET PO SCH (08:41)
[2017-09-06 10:52] LABS: GLUCOMETER DEV NAME(LOC) BV2N3; GLUCOSE,POINT OF CARE 172 MG/DL (70-110)
[2017-09-06 13:17] VITALS: BP 133/97
[2017-09-06 16:02] VITALS: BP 122/66
[2017-09-07] MEDS: REPAGLINIDE 2 MG TABLET PO SCH ×2 (06:33→16:08)
[2017-09-07] MEDS: LEVOTHYROXINE SODIUM 25 MCG TABLET PO SCH (06:33)
[2017-09-07] MEDS: LOSARTAN POTASSIUM 25 MG TABLET PO SCH (08:22)
[2017-09-07] MEDS: CHOLECALCIFEROL (VIT D3) 1,000 UNITS TABLET PO SCH (08:22)
[2017-09-07] MEDS: OMEPRAZOLE 20 MG CAPSULE PO SCH (08:22)
[2017-09-07] MEDS: OLANZapine 2.5 MG TABLET PO SCH (08:22)
[2017-09-07] MEDS: DOCUSATE SODIUM 100 MG CAPSULE PO SCH (08:22)
[2017-09-07] MEDS: BACITRACIN 28.4 GM OINTMENT TP SCH ×2 (08:24→16:08)
[2017-09-07 08:26] VITALS: BP 123/84
[2017-09-07] MEDS: INSULIN LISPRO 100 UNITS/ML SQ PRN ×3 (11:27→20:03)
[2017-09-07 11:43] LABS: GLUCOMETER DEV NAME(LOC) BV2N3; GLUCOSE,POINT OF CARE 219 MG/DL (70-110)
[2017-09-07 16:01] VITALS: BP 117/72
[2017-09-07 16:12] LABS: GLUCOMETER DEV NAME(LOC) BV2N3; GLUCOSE,POINT OF CARE 177 MG/DL (70-110)
[2017-09-07 20:22] LABS: GLUCOMETER DEV NAME(LOC) BV2N3; GLUCOSE,POINT OF CARE 225 MG/DL (70-110)
[2017-09-08 01:00] VITALS: BP 148/79
[2017-09-08] MEDS: LEVOTHYROXINE SODIUM 25 MCG TABLET PO SCH (06:15)
[2017-09-08] MEDS: REPAGLINIDE 2 MG TABLET PO SCH ×2 (06:25→16:09)
[2017-09-08] MEDS: DOCUSATE SODIUM 100 MG CAPSULE PO SCH (08:20)
[2017-09-08] MEDS: OLANZapine 2.5 MG TABLET PO SCH (08:20)
[2017-09-08] MEDS: LOSARTAN POTASSIUM 25 MG TABLET PO SCH (08:20)
[2017-09-08] MEDS: OMEPRAZOLE 20 MG CAPSULE PO SCH (08:20)
[2017-09-08] MEDS: CHOLECALCIFEROL (VIT D3) 1,000 UNITS TABLET PO SCH (08:20)
[2017-09-08] MEDS: BACITRACIN 28.4 GM OINTMENT TP SCH ×2 (08:20→16:09)
[2017-09-08 08:33] VITALS: BP 116/75
[2017-09-08] MEDS: INSULIN LISPRO 100 UNITS/ML SQ PRN ×2 (11:29→20:13)
[2017-09-08 11:57] LABS: GLUCOMETER DEV NAME(LOC) BV2N3; GLUCOSE,POINT OF CARE 142 MG/DL (70-110)
[2017-09-08 16:17] LABS: GLUCOMETER DEV NAME(LOC) BV2N3; GLUCOSE,POINT OF CARE 119 MG/DL (70-110)
[2017-09-08 16:29] VITALS: BP 126/74
[2017-09-08 20:17] LABS: GLUCOMETER DEV NAME(LOC) BV2N3; GLUCOSE,POINT OF CARE 184 MG/DL (70-110)
[2017-09-09 04:43] VITALS: BP 123/79
[2017-09-09 06:30] VITALS: BP 132/76
[2017-09-09] MEDS: LEVOTHYROXINE SODIUM 25 MCG TABLET PO SCH (06:34)
[2017-09-09] MEDS: REPAGLINIDE 2 MG TABLET PO SCH ×3 (06:34→16:43)
[2017-09-09] MEDS: OLANZapine 2.5 MG TABLET PO SCH (08:37)
[2017-09-09] MEDS: CHOLECALCIFEROL (VIT D3) 1,000 UNITS TABLET PO SCH (08:37)
[2017-09-09] MEDS: LOSARTAN POTASSIUM 25 MG TABLET PO SCH ×2 (08:37→09:00)
[2017-09-09] MEDS: DOCUSATE SODIUM 100 MG CAPSULE PO SCH (08:37)
[2017-09-09] MEDS: OMEPRAZOLE 20 MG CAPSULE PO SCH (08:37)
[2017-09-09] MEDS: BACITRACIN 28.4 GM OINTMENT TP SCH ×3 (08:38→16:43)
[2017-09-09 08:44] VITALS: BP 107/57
[2017-09-09 11:22] LABS: GLUCOMETER DEV NAME(LOC) BV2N3; GLUCOSE,POINT OF CARE 127 MG/DL (70-110)
[2017-09-09 16:11] VITALS: BP 130/70
[2017-09-09 16:48] LABS: GLUCOMETER DEV NAME(LOC) BV2N3; GLUCOSE,POINT OF CARE 187 MG/DL (70-110)
[2017-09-09] MEDS: INSULIN LISPRO 100 UNITS/ML SQ PRN (17:08)
[2017-09-09] MEDS ORDERED: BENZOCAINE/MENTHOL LOZENGE MM PRN (18:30)
[2017-09-10 06:31] VITALS: BP 124/67
[2017-09-10] MEDS: REPAGLINIDE 2 MG TABLET PO SCH ×2 (06:41→17:00)
[2017-09-10] MEDS: LEVOTHYROXINE SODIUM 25 MCG TABLET PO SCH (06:41)
[2017-09-10 08:15] VITALS: BP 126/72
[2017-09-10] MEDS: LOSARTAN POTASSIUM 25 MG TABLET PO SCH (08:39)
[2017-09-10] MEDS: CHOLECALCIFEROL (VIT D3) 1,000 UNITS TABLET PO SCH (08:39)
[2017-09-10] MEDS: OMEPRAZOLE 20 MG CAPSULE PO SCH (08:39)
[2017-09-10] MEDS: OLANZapine 2.5 MG TABLET PO SCH (08:39)
[2017-09-10] MEDS: DOCUSATE SODIUM 100 MG CAPSULE PO SCH (08:39)
[2017-09-10] MEDS: BACITRACIN 28.4 GM OINTMENT TP SCH ×2 (08:40→17:00)
[2017-09-10] MEDS: INSULIN LISPRO 100 UNITS/ML SQ PRN ×2 (11:28→21:11)
[2017-09-10 15:13] LABS: GLUCOMETER DEV NAME(LOC) BV2N3; GLUCOSE,POINT OF CARE 158 MG/DL (70-110)
[2017-09-10 16:06] VITALS: BP 126/85
[2017-09-10 21:22] LABS: GLUCOMETER DEV NAME(LOC) BV2N3; GLUCOSE,POINT OF CARE 169 MG/DL (70-110)
[2017-09-11] MEDS: LEVOTHYROXINE SODIUM 25 MCG TABLET PO SCH (05:45)
[2017-09-11 05:48] LABS: GLUCOMETER DEV NAME(LOC) BV2N3; GLUCOSE,POINT OF CARE 146 MG/DL (70-110)
[2017-09-11 05:56] VITALS: BP 130/82
[2017-09-11] MEDS: REPAGLINIDE 2 MG TABLET PO SCH ×2 (06:31→16:51)
[2017-09-11] MEDS: INSULIN LISPRO 100 UNITS/ML SQ PRN ×4 (06:40→21:00)
[2017-09-11 08:25] VITALS: BP 140/93
[2017-09-11] MEDS: LOSARTAN POTASSIUM 25 MG TABLET PO SCH (08:50)
[2017-09-11] MEDS: CHOLECALCIFEROL (VIT D3) 1,000 UNITS TABLET PO SCH (08:50)
[2017-09-11] MEDS: BACITRACIN 28.4 GM OINTMENT TP SCH ×2 (08:50→16:51)
[2017-09-11] MEDS: OLANZapine 2.5 MG TABLET PO SCH (08:50)
[2017-09-11] MEDS: DOCUSATE SODIUM 100 MG CAPSULE PO SCH (08:50)
[2017-09-11] MEDS: OMEPRAZOLE 20 MG CAPSULE PO SCH (08:50)
[2017-09-11 11:22] LABS: GLUCOMETER DEV NAME(LOC) BV2N3; GLUCOSE,POINT OF CARE 183 MG/DL (70-110)
[2017-09-11 16:35] VITALS: BP 120/77
[2017-09-11 17:07] LABS: GLUCOMETER DEV NAME(LOC) BV2N3; GLUCOSE,POINT OF CARE 146 MG/DL (70-110)
[2017-09-11 20:42] LABS: GLUCOMETER DEV NAME(LOC) BV2N3; GLUCOSE,POINT OF CARE 243 MG/DL (70-110)
[2017-09-12] MEDS: REPAGLINIDE 2 MG TABLET PO SCH ×2 (06:49→16:07)
[2017-09-12] MEDS: LEVOTHYROXINE SODIUM 25 MCG TABLET PO SCH (06:49)
[2017-09-12] MEDS: BACITRACIN 28.4 GM OINTMENT TP SCH ×2 (08:15→16:07)
[2017-09-12] MEDS: OMEPRAZOLE 20 MG CAPSULE PO SCH (08:15)
[2017-09-12] MEDS: CHOLECALCIFEROL (VIT D3) 1,000 UNITS TABLET PO SCH (08:15)
[2017-09-12] MEDS: DOCUSATE SODIUM 100 MG CAPSULE PO SCH (08:15)
[2017-09-12] MEDS: LOSARTAN POTASSIUM 25 MG TABLET PO SCH (08:15)
[2017-09-12] MEDS: OLANZapine 2.5 MG TABLET PO SCH (08:15)
[2017-09-12 08:17] VITALS: BP 142/63
[2017-09-12] MEDS ORDERED: OMEP20 PO (09:48)
[2017-09-12] MEDS ORDERED: LEVO25TA9 PO (09:48)
[2017-09-12] MEDS ORDERED: DSS100 PO (09:48)
[2017-09-12] MEDS ORDERED: OLAN2.5T3 PO (09:49)
[2017-09-12] MEDS ORDERED: VITAD1000 PO (09:49)
[2017-09-12 11:17] LABS: GLUCOMETER DEV NAME(LOC) BV2N3; GLUCOSE,POINT OF CARE 204 MG/DL (70-110)
[2017-09-12] MEDS: INSULIN LISPRO 100 UNITS/ML SQ PRN ×2 (11:19→17:04)
[2017-09-12 16:25] VITALS: BP 130/79
[2017-09-12 16:52] LABS: GLUCOMETER DEV NAME(LOC) BV2N3; GLUCOSE,POINT OF CARE 258 MG/DL (70-110)
== END 2017-09-12 18:22 | disposition home or self-care (01) | DRG 750 ==
LOC: B3A 14:04 → B2S 08-31 13:25
PROVIDERS: ADMIT Psychiatry & Neurology Child & Adolescent Psychiatry; ATTEND Psychiatry & Neurology Child & Adolescent Psychiatry
DX: F20.0 Paranoid schizophrenia (principal); E11.22 Type 2 diabetes mellitus with diabetic chronic kidney disease; E11.65 Type 2 diabetes mellitus with hyperglycemia; E03.9 Hypothyroidism, unspecified; E55.9 Vitamin D deficiency, unspecified; G47.00 Insomnia, unspecified; I12.9 Hypertensive chronic kidney disease with stage 1 through stage 4 chronic kidney disease, or unspecified chronic kidney disease; K59.00 Constipation, unspecified; M19.90 Unspecified osteoarthritis, unspecified site; N18.3 Chronic kidney disease, stage 3 (moderate); M79.89 Other specified soft tissue disorders; Z91.19 Patient's noncompliance with other medical treatment and regimen; Z68.41 Body mass index [BMI] 40.0-44.9, adult; Z79.899 Other long term (current) drug therapy
CPT/HCPCS: 82306; 82962; 83036; 84439; 84443; 93970

== ENCOUNTER → 2018-06-23 | Outpatient (CLI) | payer MEDICARE, MEDICAID ==
[~2018-06-23] MED LIST changes: +LEVO25TA9 PO; -LOSA25TA21 PO; +LOSA25TA41 PO; +OLAN2.5T3 PO; -OMEG-135 PO; -PALI3 PO; -PROP20TA18 PO; +REGADENOSON 0.4 MG/5 ML PF SYRINGE IVP ONE; +SESTAMIBI TC99M/UD ISOTOPE 1 EA INJ INJ ONE; -TRAZ-144 PO
[2018-06-23 09:38] VITALS: BP 155/76
[2018-06-23 09:49] VITALS: BP 142/71
== END | disposition home or self-care (01) ==
LOC: CARDMN 08:06
PROVIDERS: ATTEND Internal Medicine Cardiovascular Disease
DX: I25.9 Chronic ischemic heart disease, unspecified (principal); R06.00 Dyspnea, unspecified
CPT/HCPCS: 78452; A9500; J2785; 93017

== ENCOUNTER 2018-07-17 06:00 | Day surgery (SDC) | payer MEDICARE, OTHER ==
[~2018-07-17] VITALS: Ht 149.9 cm; Wt 102.3 kg
[~2018-07-17 06:00] MED LIST changes: +BENZ1TAB10 PO; +METF-960 PO; +PALI3 PO; -REGADENOSON 0.4 MG/5 ML PF SYRINGE IVP ONE; -SESTAMIBI TC99M/UD ISOTOPE 1 EA INJ INJ ONE; +SIMV-261 PO; +SODIUM CHLORIDE 0.9% 1,000 ML IV ONE; +TRAZ150 PO
[2018-07-17 07:13] LABS: CALCIUM, TOTAL 8.9 mg/dL (8.8-10.5); CREATININE 1.13 mg/dL (0.60-1.30); POTASSIUM 4.4 mmol/L (3.5-5.1)
[2018-07-17 07:44] LABS: BASOPHILS % (AUTO) 0.8 % (0.0-2.0); HEMATOCRIT 37.3 % (36-46); HEMOGLOBIN 12.1 g/dL (12.0-16.0); LYMPHOCYTES # (AUTO) 2.1 K/uL (1.0-4.8); LYMPHOCYTES % (AUTO) 35.7 % (22.0-44.0); MEAN CORPUSCULAR HEMOGLOBIN 27.1 pg (26.0-34.0); MEAN CORPUSCULAR HGB CONC 32.6 G/dL (31.0-37.0); MEAN CORPUSCULAR VOLUME 83 fL (80-100); MONOCYTES # (AUTO) 0.5 K/uL (0.1-1.0); MONOCYTES % (AUTO) 8.8 % (2.0-9.0); NEUTROPHILS # (AUTO) 3.2 K/uL (1.8-7.7); NEUTROPHILS % (AUTO) 52.7 % (40.0-70.0); PLATELET COUNT (AUTO) 205 K/uL (150-450); RED BLOOD CELL COUNT(AUTO) 4.48 MIL/uL (4.00-5.20); RED CELL DISTRIBUTION WIDTH 14.7 % (11.5-14.5)
[2018-07-17 07:49] LABS: PROTHROMBIN TIME 10.8 SEC (9.4-11.6)
[2018-07-17] MEDS ORDERED: HEPARIN SODIUM 1000 UNITS/NS 1,000 ML ONE (08:01)
[2018-07-17] MEDS ORDERED: SODIUM BICARBONATE 50 MEQ/50 ML VIAL ONE (08:01)
[2018-07-17] MEDS ORDERED: IOHEXOL 300 MG/ML 150 ML VIAL ONE (08:01)
[2018-07-17] MEDS ORDERED: LIDOCAINE/PF 1% 30 ML VIAL ONE (08:01)
[2018-07-17 08:25] VITALS: BP 166/96
[2018-07-17] MEDS ORDERED: MIDAZOLAM HCL 2 MG/2 ML VIAL ONE (08:32)
[2018-07-17] MEDS ORDERED: FentaNYL CITRATE-PF 100 MCG/2 ML VIAL ONE (08:32)
[2018-07-17] MEDS ORDERED: VERAPAMIL HCL 2.5 MG/ML 2 ML VIAL ONE (08:40)
[2018-07-17] MEDS ORDERED: NITROGLYCERIN 50 MG/D5% WATER 250 ML ONE (08:40)
[2018-07-17] MEDS ORDERED: HEPARIN SODIUM 1000 UNITS/NS 1,000 ML IARTER ONE (09:01)
[2018-07-17] MEDS ORDERED: FentaNYL CITRATE-PF 100 MCG/2 ML VIAL IVP ONE (09:15)
[2018-07-17] MEDS ORDERED: MIDAZOLAM HCL 2 MG/2 ML VIAL IVP ONE (09:15)
[2018-07-17] MEDS ORDERED: LIDOCAINE 1% 30 ML/SOD BICARB 8.4% 4 ML SQ ONE (09:15)
[2018-07-17] MEDS ORDERED: IOHEXOL 300 MG/ML 150 ML VIAL IARTER ONE (09:15)
[2018-07-17] MEDS ORDERED: VERAPAMIL HCL 2.5 MG/ML 2 ML VIAL IARTER ONE (09:15)
[2018-07-17] MEDS ORDERED: NITROGLYCERIN/D5W 50 MG/250 ML IV BOTTLE IARTER ONE (09:15)
[2018-07-17 09:49] VITALS: BP 161/70
== END 2018-07-17 16:15 | disposition home or self-care (01) ==
LOC: CATHLAB 06:00
PROVIDERS: ATTEND Internal Medicine Cardiovascular Disease
DX: R07.89 Other chest pain (principal); R94.39 Abnormal result of other cardiovascular function study; I10 Essential (primary) hypertension; E03.9 Hypothyroidism, unspecified; M19.90 Unspecified osteoarthritis, unspecified site; F20.9 Schizophrenia, unspecified; Z79.899 Other long term (current) drug therapy; Z98.890 Other specified postprocedural states
CPT/HCPCS: 36415; 80048; 85025; 85610; 85730; 93005; 93458; 99156; 99157; J1644; J2250; J3010; J3490 ×4; J7030; Q9967

== ENCOUNTER → 2018-09-03 | Outpatient (CLI) | payer MEDICARE, OTHER ==
[~2018-09-03] MED LIST changes: -OLAN2.5T3 PO; -SODIUM CHLORIDE 0.9% 1,000 ML IV ONE
[2018-09-03 12:13] LABS: APPEARANCE,URINE CLOUDY (CLEAR); BILIRUBIN,URINE NEGATIVE (NEGATIVE); GLUCOSE, URINE (UA) >=1000 mg/dL (NEGATIVE); KETONES,URINE NEGATIVE (NEGATIVE); LEUKOCYTE ESTERASE ,URINE NEGATIVE (NEGATIVE); NITRATE,URINE NEGATIVE (NEGATIVE); OCCULT BLOOD,URINE MODERATE (NEGATIVE); PH,URINE 5.5 (5.0-8.0); PROTEIN,URINE POS 1+ (NEGATIVE); UROBILINOGEN,URINE 0.2 mg/dL (<=1.0)
[2018-09-03 12:15] LABS: BASOPHILS % (AUTO) 0.3 % (0.0-2.0); EOSINOPHILS % (AUTO) 1.6 % (1.0-6.0); HEMATOCRIT 39.6 % (36-46); HEMOGLOBIN 12.8 g/dL (12.0-16.0); LYMPHOCYTES # (AUTO) 2.1 K/uL (1.0-4.8); MEAN CORPUSCULAR HEMOGLOBIN 26.7 pg (26.0-34.0); MEAN CORPUSCULAR HGB CONC 32.2 G/dL (31.0-37.0); MEAN CORPUSCULAR VOLUME 83 fL (80-100); MONOCYTES # (AUTO) 0.4 K/uL (0.1-1.0); MONOCYTES % (AUTO) 5.9 % (2.0-9.0); NEUTROPHILS # (AUTO) 4.8 K/uL (1.8-7.7); NEUTROPHILS % (AUTO) 64.2 % (40.0-70.0); PLATELET COUNT (AUTO) 211 K/uL (150-450); RED BLOOD CELL COUNT(AUTO) 4.78 MIL/uL (4.00-5.20); RED CELL DISTRIBUTION WIDTH 15.2 % (11.5-14.5)
[2018-09-03 12:20] LABS: ALBUMIN 3.2 g/dL (3.4-5.0); BILIRUBIN,TOTAL 0.3 mg/dL (0.1-1.0); CALCIUM, TOTAL 8.9 mg/dL (8.8-10.5); CREATININE 1.18 mg/dL (0.60-1.30); POTASSIUM 4.5 mmol/L (3.5-5.1); TOTAL PROTEIN, SERUM 7.4 g/dL (6.4-8.2)
[2018-09-03 12:58] LABS: WBC,URINE 0-2 /HPF (0-5)
[2018-09-03 12:59] LABS: BACTERIA,URINE Rare /HPF (None Seen); SQUAMOUS EPITHELIAL CELL,UR Few /LPF (None Seen); YEAST,URINE Rare /HPF (None Seen)
== END | disposition home or self-care (01) ==
LOC: LABPV 11:03
PROVIDERS: ATTEND Internal Medicine Nephrology
DX: I12.9 Hypertensive chronic kidney disease with stage 1 through stage 4 chronic kidney disease, or unspecified chronic kidney disease (principal); E11.22 Type 2 diabetes mellitus with diabetic chronic kidney disease; N18.9 Chronic kidney disease, unspecified

== ENCOUNTER 2018-09-30 08:27 | Day surgery (SDC) | payer MEDICARE, OTHER ==
[~2018-09-30] VITALS: Ht 144.8 cm; Wt 98.0 kg
[~2018-09-30 08:27] MED LIST changes: +BUPIVACAINE HCL/PF 0.5% 30 ML VIAL ONE; +CANA100T PO; -DSS100 PO; +FLUC150T66 PO; +GLIP5 PO; -LEVO25TA9 PO; +LIDOCAINE 1%/EPI 1:200,000/PF 10 ML VIAL ONE; -OMEP20 PO; +PROP20TA18 PO; -SIMV-261 PO; -VITAD1000 PO
[2018-09-30] MEDS ORDERED: RINGERS SOLUTION,LACTATED 1,000 ML IV ONE ×2 (08:30→08:38)
[2018-09-30] MEDS ORDERED: PALI6TAB6 PO (08:34)
[2018-09-30] MEDS ORDERED: GABA-529 PO (08:34)
[2018-09-30] MEDS ORDERED: METF-444 PO (08:34)
[2018-09-30] MEDS ORDERED: LEVO25TA9 PO (08:34)
[2018-09-30] MEDS ORDERED: CANA100T PO (08:34)
[2018-09-30] MEDS ORDERED: SIMV-261 PO (08:34)
[2018-09-30] MEDS ORDERED: BUPIVACAINE HCL/PF 0.25% 30 ML VIAL ONE (09:23)
[2018-09-30 09:30] LABS: GLUCOMETER DEV NAME(LOC) SDS.; GLUCOSE,POINT OF CARE 165 MG/DL (70-110)
[2018-09-30] MEDS ORDERED: CeFAZolin 2 GM/DEXTROSE 50 ML IV ONE (10:00)
== END 2018-09-30 11:35 | disposition home or self-care (01) ==
LOC: SURGERY 08:27
PROVIDERS: ATTEND Surgery
DX: K46.0 Unspecified abdominal hernia with obstruction, without gangrene (principal); I10 Essential (primary) hypertension; E11.9 Type 2 diabetes mellitus without complications; F20.9 Schizophrenia, unspecified; Z79.899 Other long term (current) drug therapy; Z98.890 Other specified postprocedural states; Z53.8 Procedure and treatment not carried out for other reasons
CPT/HCPCS: 82962; J3490; J7120

== ENCOUNTER 2018-10-14 12:17 | Day surgery (SDC) | payer MEDICARE, OTHER ==
[~2018-10-14] VITALS: Ht 144.8 cm; Wt 98.0 kg
[~2018-10-14 12:17] MED LIST changes: -BUPIVACAINE HCL/PF 0.5% 30 ML VIAL ONE; +CeFAZolin 2 GM/DEXTROSE 50 ML IV ONE; +GABA-529 PO; +LEVO25TA9 PO; -LIDOCAINE 1%/EPI 1:200,000/PF 10 ML VIAL ONE; +METF-444 PO; -PALI3 PO; +PALI6TAB6 PO; +SIMV-261 PO
[2018-10-14] MEDS ORDERED: FentaNYL CITRATE-PF 100 MCG/2 ML VIAL IVP ONE (12:18)
[2018-10-14] MEDS ORDERED: CeFAZolin 2 GM/DEXTROSE 50 ML IV ONE (12:29)
[2018-10-14] MEDS ORDERED: RINGERS SOLUTION,LACTATED 1,000 ML IV ONE ×2 (12:29→12:30)
[2018-10-14 12:59] LABS: GLUCOMETER DEV NAME(LOC) SDS.; GLUCOSE,POINT OF CARE 165 MG/DL (70-110)
[2018-10-14 13:26] LABS: EOSINOPHILS % (AUTO) 0.8 % (1.0-6.0); HEMATOCRIT 38.6 % (36-46); HEMOGLOBIN 12.4 g/dL (12.0-16.0); LYMPHOCYTES # (AUTO) 1.9 K/uL (1.0-4.8); LYMPHOCYTES % (AUTO) 28.4 % (22.0-44.0); MEAN CORPUSCULAR HEMOGLOBIN 26.6 pg (26.0-34.0); MEAN CORPUSCULAR HGB CONC 32.2 G/dL (31.0-37.0); MEAN CORPUSCULAR VOLUME 83 fL (80-100); MONOCYTES # (AUTO) 0.5 K/uL (0.1-1.0); MONOCYTES % (AUTO) 7.4 % (2.0-9.0); NEUTROPHILS # (AUTO) 4.1 K/uL (1.8-7.7); NEUTROPHILS % (AUTO) 62.4 % (40.0-70.0); PLATELET COUNT (AUTO) 203 K/uL (150-450); RED BLOOD CELL COUNT(AUTO) 4.68 MIL/uL (4.00-5.20); RED CELL DISTRIBUTION WIDTH 15.1 % (11.5-14.5)
[2018-10-14 13:35] LABS: CALCIUM, TOTAL 9.3 mg/dL (8.8-10.5); POTASSIUM 3.8 mmol/L (3.5-5.1)
[2018-10-14 13:37] LABS: PROTHROMBIN TIME 10.7 SEC (9.4-11.6)
[2018-10-14] MEDS ORDERED: BUPIVACAINE LIPOSOME/PF 1.3%-13.3MG/ML SUSPENSION 20 ML VIAL INJ ONE (14:30)
[2018-10-14] MEDS ORDERED: BUPIVACAINE HCL/PF 0.25% 30 ML VIAL ONE (14:30)
[2018-10-14] MEDS ORDERED: BACITRACIN 50,000 UNITS/VIAL ONE (16:38)
[2018-10-14] MEDS ORDERED: SODIUM CHLORIDE 0.9% 10 ML ONE (16:38)
[2018-10-14] MEDS: HYDROmorphone 2 MG/ML SYRINGE IVP PRN ×2 (17:28→17:50)
[2018-10-14] MEDS ORDERED: FentaNYL CITRATE-PF 100 MCG/2 ML VIAL IVP PRN (17:45)
[2018-10-14] MEDS ORDERED: KETOROLAC TROMETHAMINE 30 MG/ML VIAL ONE (17:51)
[2018-10-14] MEDS ORDERED: KETOROLAC TROMETHAMINE 30 MG/ML VIAL IVP STA (17:54)
[2018-10-14] MEDS ORDERED: OXYGEN THERAPY IH SCH (20:00)
[2018-10-14] MEDS ORDERED: ONDANSETRON HCL 4 MG/2 ML VIAL ONE (22:08)
[2018-10-14] MEDS ORDERED: ROCURONIUM BROMIDE 10 MG/ML 5 ML VIAL ONE (22:08)
[2018-10-14] MEDS ORDERED: EPHEDrine SULFATE 50 MG/ML VIAL ONE (22:08)
[2018-10-14] MEDS ORDERED: PROPOFOL 1% 20 ML VIAL IVP ONE (22:08)
[2018-10-14] MEDS ORDERED: 0.9% SODIUM CHLORIDE 10 ML VIAL ONE (22:08)
[2018-10-14] MEDS ORDERED: GLYCOPYRROLATE 0.2 MG/ML VIAL ONE (22:08)
[2018-10-14] MEDS ORDERED: CefoTEtan DISODIUM 1 GM/VIAL ONE (22:08)
[2018-10-14] MEDS ORDERED: NEOSTIGMINE METHYLSULFATE 1 MG/ML 10 ML VIAL IVP ONE (22:08)
[2018-10-14] MEDS ORDERED: SUCCINYLCHOLINE CHLORIDE 20 MG/ML 10 ML VIAL ONE (22:08)
[2018-10-14] MEDS ORDERED: KETOROLAC TROMETHAMINE 60 MG/2 ML VIAL IM ONE (22:08)
== END 2018-10-14 19:15 | disposition home or self-care (01) ==
LOC: SURGERY 12:17
PROVIDERS: ATTEND Surgery
DX: K43.6 Other and unspecified ventral hernia with obstruction, without gangrene (principal); E11.9 Type 2 diabetes mellitus without complications; I10 Essential (primary) hypertension; Z79.899 Other long term (current) drug therapy; E78.00 Pure hypercholesterolemia, unspecified; E03.9 Hypothyroidism, unspecified; Z98.890 Other specified postprocedural states
CPT/HCPCS: 36415; 49561; 49568; 80048; 82962; 85025; 85610; 85730; 88302; 93005; C1781; J0330; J0690; J1170; J1885 ×2; J2405; J2704; J3010; J3490 ×6; J7120; C9290

== ENCOUNTER → 2018-12-31 | Outpatient (CLI) | payer MEDICARE, OTHER ==
[~2018-12-31] MED LIST changes: -CeFAZolin 2 GM/DEXTROSE 50 ML IV ONE
[2018-12-31 12:35] LABS: ALBUMIN 3.1 g/dL (3.4-5.0); BILIRUBIN,TOTAL 0.5 mg/dL (0.1-1.0); CALCIUM, TOTAL 8.9 mg/dL (8.8-10.5); CHOL/HDL RATIO 2.3 (3.9-5.7); CREATININE 1.18 mg/dL (0.60-1.30); POTASSIUM 4.1 mmol/L (3.5-5.1); THYROID STIMULATING HORMONE 0.75 uIU/mL (0.36-3.74); TOTAL PROTEIN, SERUM 7.2 g/dL (6.4-8.2)
[2018-12-31 12:38] LABS: HEMOGLOBIN A1C 7.5 % (4.5-6.2)
== END | disposition home or self-care (01) ==
LOC: LABPV 11:08
PROVIDERS: ATTEND Internal Medicine Nephrology
DX: E11.22 Type 2 diabetes mellitus with diabetic chronic kidney disease (principal); I12.9 Hypertensive chronic kidney disease with stage 1 through stage 4 chronic kidney disease, or unspecified chronic kidney disease; N18.9 Chronic kidney disease, unspecified; E03.9 Hypothyroidism, unspecified; R80.9 Proteinuria, unspecified
CPT/HCPCS: 83036; 84443

== ENCOUNTER 2020-12-08 17:05 | Emergency (ER) | payer MEDICARE, OTHER ==
[~2020-12-08] VITALS: Ht 167.6 cm; Wt 90.9 kg
[~2020-12-08 17:05] MED LIST changes: +GABA-1216 PO; -GABA-529 PO; +LOSA25TA21 PO; -LOSA25TA41 PO
[2020-12-08] MEDS ORDERED: METHOCARBAMOL 500 MG TABLET PO ONE (20:00)
[2020-12-08] MEDS ORDERED: KETOROLAC TROMETHAMINE 60 MG/2 ML VIAL IM ONE (20:00)
[2020-12-08 20:54] VITALS: BP 131/75
== END 2020-12-08 21:37 | disposition home or self-care (01) ==
LOC: EMS 17:05
DX: E11.621 Type 2 diabetes mellitus with foot ulcer (principal); I10 Essential (primary) hypertension; F20.9 Schizophrenia, unspecified; M54.42 Lumbago with sciatica, left side
CPT/HCPCS: 96372; 99283; J1885

== ENCOUNTER 2021-01-04 18:34 | Emergency (ER) | payer MEDICARE, OTHER ==
[~2021-01-04] VITALS: Ht 157.5 cm; Wt 86.4 kg
[2021-01-04 20:39] LABS: BASOPHILS % (AUTO) 0.3 % (0.0-2.0); EOSINOPHILS % (AUTO) 0.9 % (1.0-6.0); HEMATOCRIT 40.3 % (36-46); HEMOGLOBIN 12.8 g/dL (12.0-16.0); LYMPHOCYTES # (AUTO) 2.2 K/uL (1.0-4.8); LYMPHOCYTES % (AUTO) 27.8 % (22.0-44.0); MEAN CORPUSCULAR HGB CONC 31.7 G/dL (31.0-37.0); MEAN CORPUSCULAR VOLUME 85 fL (80-100); MONOCYTES # (AUTO) 0.5 K/uL (0.1-1.0); PLATELET COUNT (AUTO) 173 K/uL (150-450); RED BLOOD CELL COUNT(AUTO) 4.74 MIL/uL (4.00-5.20); RED CELL DISTRIBUTION WIDTH 15.9 % (11.5-14.5)
[2021-01-04 20:51] LABS: CREATININE 1.06 mg/dL (0.60-1.30); POTASSIUM 4.8 mmol/L (3.5-5.1)
[2021-01-04 21:17] LABS: ALBUMIN 3.2 g/dL (3.4-5.0); BILIRUBIN,TOTAL 0.3 mg/dL (0.1-1.0); MAGNESIUM 1.7 mg/dL (1.80-2.40); TOTAL PROTEIN, SERUM 7.1 g/dL (6.4-8.2)
[2021-01-04] MEDS ORDERED: MAGNESIUM SULFATE 1 GM in DEXTROSE 5%-WATER 50 ML IV ONE (22:15)
[2021-01-04] MEDS ORDERED: SODIUM CHLORIDE 0.9% 1,000 ML IV ONE (22:15)
[2021-01-04] MEDS ORDERED: IOHEXOL 350 MG/ML 100 ML VIAL ONE (23:08)
[2021-01-04] MEDS ORDERED: SODIUM CHLORIDE 0.9% 100 ML ONE (23:08)
[2021-01-04 23:30] VITALS: BP 127/68
== END 2021-01-05 01:41 | disposition home or self-care (01) ==
LOC: EMS 18:39
DX: E83.42 Hypomagnesemia (principal); R19.7 Diarrhea, unspecified; E11.9 Type 2 diabetes mellitus without complications; I10 Essential (primary) hypertension; F20.9 Schizophrenia, unspecified; Z79.899 Other long term (current) drug therapy
CPT/HCPCS: 36415; 74177; 80053; 82550; 83690; 83735; 83880; 84484; 85025; 93005; 96361; 96365; 96366; 99285; A9575; J3475; J7030; J7050; J7060

== ENCOUNTER 2021-06-25 13:50 | Emergency (ER) | payer MEDICARE, OTHER ==
[~2021-06-25] VITALS: Ht 160 cm; Wt 104.5 kg
[~2021-06-25 13:50] MED LIST changes: -FLUC150T66 PO; +LOSA-381 PO; -LOSA25TA21 PO; -METF-960 PO; -TRAZ150 PO; +TRAZ150T80 PO
[2021-06-25 15:34] VITALS: BP 150/66
== END 2021-06-25 15:45 | disposition home or self-care (01) ==
LOC: EMS 13:50
DX: S61.411A Laceration without foreign body of right hand, initial encounter (principal); I12.9 Hypertensive chronic kidney disease with stage 1 through stage 4 chronic kidney disease, or unspecified chronic kidney disease; E11.22 Type 2 diabetes mellitus with diabetic chronic kidney disease; N18.9 Chronic kidney disease, unspecified; F20.9 Schizophrenia, unspecified; Z79.84 Long term (current) use of oral hypoglycemic drugs; W45.8XXA Other foreign body or object entering through skin, initial encounter; Y93.89 Activity, other specified; Y92.89 Other specified places as the place of occurrence of the external cause; Y99.8 Other external cause status
CPT/HCPCS: 82962; 99282

== ENCOUNTER 2022-07-17 20:14 | Inpatient (IN) | payer MEDICARE, MEDICAID ==
[~2022-07-17] VITALS: Ht 160 cm; Wt 92.1 kg
[~2022-07-17 20:14] MED LIST changes: +ACET-2247 PO; +AMLO-257 PO; -BENZ1TAB10 PO; +BENZ1TAB96 PO; +BISA-151 PO; +CLON0.1T2 PO; +DOCU-385 PO; +DOXY-354 PO; +FAMO20 PO; -GLIP5 PO; +GLIP5TAB12 PO; +HEPA500018 SQ; +IBUP-45 PO; +INSU100V SQ; +LACT10SO10 PO; +MAGN-169 PO; +NYST15PO3 TP; +TRAZ-257 PO
[2022-07-17] MEDS ORDERED: LORazepam 1 MG TABLET PO PRN (21:00)
[2022-07-17] MEDS ORDERED: ZOLPIDEM TARTRATE 10 MG TABLET PO PRN (21:00)
[2022-07-17 22:54] VITALS: BP 148/67
[2022-07-17] MEDS ORDERED: PNEUMOCOCCAL VACCINE POLYVALENT 0.5 ML VIAL [PPSV23] IM. ONE (23:15)
[2022-07-17] MEDS ORDERED: INFLUENZA VIRUS VACCINE QVS 2022-23 (6MO+)/PF 60 MCG/0.5 ML SYRINGE IM. ONE (23:15)
[2022-07-18] MEDS ORDERED: MAG HYDROX/AL HYDROX/SIMETH ES 30 ML SUSPENSION UDCUP PO PRN (05:45)
[2022-07-18] MEDS ORDERED: OMEPRAZOLE 20 MG CAPSULE PO PRN (05:45)
[2022-07-18] MEDS ORDERED: IBUPROFEN 600 MG TABLET PO PRN (05:45)
[2022-07-18] MEDS ORDERED: BENZOCAINE/MENTHOL LOZENGE PO PRN (05:45)
[2022-07-18] MEDS ORDERED: CloNIDine HCL 0.1 MG TABLET PO PRN (05:45)
[2022-07-18] MEDS ORDERED: ALBUTEROL SULFATE HFA 90 MCG/PUFF 8 GM INHALER IH PRN (05:45)
[2022-07-18] MEDS ORDERED: MAGNESIUM HYDROXIDE SUSPENSION 30 ML UDCUP PO PRN (05:45)
[2022-07-18] MEDS ORDERED: BACITRACIN 28 GM OINTMENT TP PRN (05:45)
[2022-07-18] MEDS ORDERED: ONDANSETRON HCL 4 MG TABLET PO PRN (05:45)
[2022-07-18] MEDS ORDERED: ACETAMINOPHEN 325 MG TABLET PO PRN (05:45)
[2022-07-18] MEDS ORDERED: LOPERAMIDE HCL 2 MG CAPSULE PO PRN (05:45)
[2022-07-18] MEDS ORDERED: DEXTROSE 50%-WATER 25 GM/50 ML SYRINGE IVP PRN (05:45)
[2022-07-18] MEDS ORDERED: PETROLATUM,WHITE 28 GM JELLY TP PRN (05:45)
[2022-07-18] MEDS ORDERED: DOCUSATE SODIUM 100 MG CAPSULE PO PRN (05:45)
[2022-07-18 06:32] LABS: GLUCOMETER DEV NAME(LOC) 3EX.2; GLUCOSE,POINT OF CARE 185 MG/DL (70-110)
[2022-07-18] MEDS ORDERED: REPAGLINIDE 2 MG TABLET PO SCH (07:00)
[2022-07-18] MEDS: LEVOTHYROXINE SODIUM 25 MCG TABLET PO SCH (07:03)
[2022-07-18] MEDS: MetFORMIN HCL 500 MG TABLET PO SCH ×2 (07:03→16:32)
[2022-07-18] MEDS: GlipiZIDE 5 MG TABLET PO SCH (07:03)
[2022-07-18] MEDS: REPAGLINIDE 1 MG TABLET PO SCH ×3 (07:04→16:32)
[2022-07-18] MEDS: INSULIN LISPRO 100 UNITS/ML SQ PRN ×4 (07:10→21:05)
[2022-07-18] MEDS: DOXYCYCLINE HYCLATE 100 MG TABLET PO SCH ×2 (08:44→16:32)
[2022-07-18] MEDS: GABAPENTIN 100 MG CAPSULE PO SCH ×2 (08:44→16:32)
[2022-07-18] MEDS: AmLODIPine BESYLATE 5 MG TABLET PO SCH (08:44)
[2022-07-18] MEDS: LOSARTAN POTASSIUM 25 MG TABLET PO SCH ×2 (08:44→16:32)
[2022-07-18 09:05] VITALS: BP 158/69
[2022-07-18 11:41] LABS: GLUCOMETER DEV NAME(LOC) 3EX.2; GLUCOSE,POINT OF CARE 261 MG/DL (70-110)
[2022-07-18] MEDS: PROPRANOLOL HCL 20 MG TABLET PO SCH (16:32)
[2022-07-18 17:32] LABS: GLUCOMETER DEV NAME(LOC) 3EX.2; GLUCOSE,POINT OF CARE 316 MG/DL (70-110)
[2022-07-18 20:36] LABS: GLUCOMETER DEV NAME(LOC) 3EX.2; GLUCOSE,POINT OF CARE 370 MG/DL (70-110)
[2022-07-18] MEDS: PALIPERIDONE 6 MG ER TABLET PO SCH (20:45)
[2022-07-18] MEDS: TraZODone HCL 100 MG TABLET PO SCH (20:46)
[2022-07-18] MEDS: SIMVASTATIN 40 MG TABLET PO SCH (20:46)
[2022-07-18 23:15] VITALS: BP 135/74
[2022-07-19 06:11] LABS: GLUCOMETER DEV NAME(LOC) 3EX.2; GLUCOSE,POINT OF CARE 162 MG/DL (70-110)
[2022-07-19] MEDS: GlipiZIDE 5 MG TABLET PO SCH (07:06)
[2022-07-19] MEDS: LEVOTHYROXINE SODIUM 25 MCG TABLET PO SCH (07:06)
[2022-07-19] MEDS: MetFORMIN HCL 500 MG TABLET PO SCH ×2 (07:07→17:16)
[2022-07-19] MEDS: REPAGLINIDE 1 MG TABLET PO SCH ×3 (07:07→16:57)
[2022-07-19] MEDS: INSULIN LISPRO 100 UNITS/ML SQ PRN ×4 (07:08→21:10)
[2022-07-19] MEDS: LOSARTAN POTASSIUM 25 MG TABLET PO SCH ×2 (08:24→16:57)
[2022-07-19] MEDS: DOXYCYCLINE HYCLATE 100 MG TABLET PO SCH ×2 (08:24→16:57)
[2022-07-19] MEDS: PROPRANOLOL HCL 20 MG TABLET PO SCH ×3 (08:24→16:57)
[2022-07-19] MEDS: GABAPENTIN 100 MG CAPSULE PO SCH ×2 (08:25→16:57)
[2022-07-19] MEDS: AmLODIPine BESYLATE 5 MG TABLET PO SCH (08:25)
[2022-07-19 09:51] VITALS: BP 143/69
[2022-07-19 11:46] LABS: GLUCOMETER DEV NAME(LOC) 3EX.2; GLUCOSE,POINT OF CARE 312 MG/DL (70-110)
[2022-07-19 16:19] VITALS: BP 118/59
[2022-07-19 16:26] LABS: GLUCOMETER DEV NAME(LOC) 3EX.2; GLUCOSE,POINT OF CARE 257 MG/DL (70-110)
[2022-07-19 20:35] LABS: GLUCOMETER DEV NAME(LOC) 3EX.2; GLUCOSE,POINT OF CARE 293 MG/DL (70-110)
[2022-07-19] MEDS: SIMVASTATIN 40 MG TABLET PO SCH (20:58)
[2022-07-19] MEDS: PALIPERIDONE 6 MG ER TABLET PO SCH (20:58)
[2022-07-19] MEDS: TraZODone HCL 100 MG TABLET PO SCH (20:58)
[2022-07-19 21:55] VITALS: BP 141/61
[2022-07-20 05:51] LABS: GLUCOMETER DEV NAME(LOC) 3EX.2; GLUCOSE,POINT OF CARE 129 MG/DL (70-110)
[2022-07-20] MEDS: GlipiZIDE 5 MG TABLET PO SCH (06:37)
[2022-07-20] MEDS: LEVOTHYROXINE SODIUM 25 MCG TABLET PO SCH (06:37)
[2022-07-20] MEDS: MetFORMIN HCL 500 MG TABLET PO SCH ×2 (06:37→17:23)
[2022-07-20] MEDS: REPAGLINIDE 1 MG TABLET PO SCH ×4 (06:37→17:13)
[2022-07-20 08:24] VITALS: BP 157/91
[2022-07-20] MEDS: AmLODIPine BESYLATE 5 MG TABLET PO SCH (09:31)
[2022-07-20] MEDS: GABAPENTIN 100 MG CAPSULE PO SCH ×2 (09:31→17:13)
[2022-07-20] MEDS: DOXYCYCLINE HYCLATE 100 MG TABLET PO SCH ×2 (09:32→17:13)
[2022-07-20] MEDS: LOSARTAN POTASSIUM 25 MG TABLET PO SCH ×2 (09:32→17:13)
[2022-07-20] MEDS: PROPRANOLOL HCL 20 MG TABLET PO SCH ×3 (09:32→17:13)
[2022-07-20 16:18] VITALS: BP 137/84
[2022-07-20 16:21] LABS: GLUCOMETER DEV NAME(LOC) 3EX.2; GLUCOSE,POINT OF CARE 299 MG/DL (70-110)
[2022-07-20] MEDS: INSULIN LISPRO 100 UNITS/ML SQ PRN ×2 (17:32→21:05)
[2022-07-20 20:51] LABS: GLUCOMETER DEV NAME(LOC) 3EX.2; GLUCOSE,POINT OF CARE 255 MG/DL (70-110)
[2022-07-20] MEDS: SIMVASTATIN 40 MG TABLET PO SCH (21:22)
[2022-07-20] MEDS: TraZODone HCL 100 MG TABLET PO SCH (21:22)
[2022-07-20] MEDS: PALIPERIDONE 6 MG ER TABLET PO SCH (21:22)
[2022-07-20 21:44] VITALS: BP 154/75
[2022-07-21 06:06] LABS: GLUCOMETER DEV NAME(LOC) 3EX.2; GLUCOSE,POINT OF CARE 107 MG/DL (70-110)
[2022-07-21] MEDS: GlipiZIDE 5 MG TABLET PO SCH (06:38)
[2022-07-21] MEDS: MetFORMIN HCL 500 MG TABLET PO SCH ×2 (06:38→17:53)
[2022-07-21] MEDS: LEVOTHYROXINE SODIUM 25 MCG TABLET PO SCH (06:39)
[2022-07-21] MEDS: REPAGLINIDE 1 MG TABLET PO SCH ×3 (06:40→16:13)
[2022-07-21 08:32] VITALS: BP 138/78
[2022-07-21] MEDS: LOSARTAN POTASSIUM 25 MG TABLET PO SCH ×2 (08:33→16:13)
[2022-07-21] MEDS: GABAPENTIN 100 MG CAPSULE PO SCH ×2 (08:33→16:12)
[2022-07-21] MEDS: DOXYCYCLINE HYCLATE 100 MG TABLET PO SCH ×2 (08:33→16:12)
[2022-07-21] MEDS: AmLODIPine BESYLATE 5 MG TABLET PO SCH (08:33)
[2022-07-21] MEDS: PROPRANOLOL HCL 20 MG TABLET PO SCH ×3 (08:33→16:12)
[2022-07-21 11:56] LABS: GLUCOMETER DEV NAME(LOC) 3EX.2; GLUCOSE,POINT OF CARE 228 MG/DL (70-110)
[2022-07-21 12:01] LABS: ALANINE AMINOTRANSFERASE 24 U/L (12-78); ALBUMIN 2.7 g/dL (3.4-5.0); ALKALINE PHOSPHATASE 123 U/L (46-116); ANION GAP 5 mmol/L (8-16); ASPARTATE AMINOTRANSFERASE 15 U/L (15-37); BILIRUBIN,TOTAL 0.3 mg/dL (0.1-1.0); CALCIUM, TOTAL 8.9 mg/dL (8.8-10.5); CARBON DIOXIDE 26 mmol/L (22-29); CHLORIDE 104 mmol/L (98-107); CHOL/HDL RATIO 2.2 (3.9-5.7); CHOLESTEROL 127 mg/dL (131-200); CREATININE 0.85 mg/dL (0.60-1.30); GLOMERULAR FILTR. RATE CALC > 60 mL/min (>60); GLUCOSE,RANDOM 203 mg/dL (70-110); HDL CHOLESTEROL 57 mg/dL (40-60); LDL CHOL (CALC.) 47 mg/dL (0-130); POTASSIUM 5.2 mmol/L (3.5-5.1); SODIUM SERUM 135 mmol/L (136-145); TOTAL PROTEIN, SERUM 6.4 g/dL (6.4-8.2); TRIGLYCERIDES 115 mg/dL (15-150); UREA NITROGEN, BLOOD 34 mg/dL (7-18)
[2022-07-21 12:02] LABS: HEMOGLOBIN A1C 7.6 % (3.8-5.6)
[2022-07-21] MEDS: INSULIN LISPRO 100 UNITS/ML SQ PRN ×3 (12:15→21:10)
[2022-07-21 16:14] VITALS: BP 143/77
[2022-07-21 16:46] LABS: GLUCOMETER DEV NAME(LOC) 3EX.2; GLUCOSE,POINT OF CARE 266 MG/DL (70-110)
[2022-07-21 21:06] LABS: GLUCOMETER DEV NAME(LOC) 3EX.2; GLUCOSE,POINT OF CARE 215 MG/DL (70-110)
[2022-07-21 21:07] VITALS: BP 111/52
[2022-07-21] MEDS: PALIPERIDONE 6 MG ER TABLET PO SCH (21:31)
[2022-07-21] MEDS: SIMVASTATIN 40 MG TABLET PO SCH (21:32)
[2022-07-21] MEDS: TraZODone HCL 100 MG TABLET PO SCH (21:32)
[2022-07-22 05:47] LABS: GLUCOMETER DEV NAME(LOC) 3EX.2; GLUCOSE,POINT OF CARE 111 MG/DL (70-110)
[2022-07-22] MEDS: MetFORMIN HCL 500 MG TABLET PO SCH ×2 (06:39→17:03)
[2022-07-22] MEDS: LEVOTHYROXINE SODIUM 25 MCG TABLET PO SCH (06:39)
[2022-07-22] MEDS: GlipiZIDE 5 MG TABLET PO SCH (06:39)
[2022-07-22] MEDS: REPAGLINIDE 1 MG TABLET PO SCH ×3 (06:39→16:20)
[2022-07-22] MEDS: GABAPENTIN 100 MG CAPSULE PO SCH ×2 (09:03→16:21)
[2022-07-22] MEDS: AmLODIPine BESYLATE 5 MG TABLET PO SCH (09:03)
[2022-07-22] MEDS: DOXYCYCLINE HYCLATE 100 MG TABLET PO SCH ×2 (09:03→16:20)
[2022-07-22] MEDS: PROPRANOLOL HCL 20 MG TABLET PO SCH ×3 (09:03→16:20)
[2022-07-22] MEDS: LOSARTAN POTASSIUM 25 MG TABLET PO SCH ×2 (09:04→16:20)
[2022-07-22 09:19] VITALS: BP 155/60
[2022-07-22 11:15] VITALS: BP 125/65
[2022-07-22 11:21] LABS: GLUCOMETER DEV NAME(LOC) 3EX.2; GLUCOSE,POINT OF CARE 205 MG/DL (70-110)
[2022-07-22] MEDS: INSULIN LISPRO 100 UNITS/ML SQ PRN ×3 (11:21→21:04)
[2022-07-22 16:45] VITALS: BP 156/97
[2022-07-22 17:02] LABS: GLUCOMETER DEV NAME(LOC) 3EX.2; GLUCOSE,POINT OF CARE 253 MG/DL (70-110)
[2022-07-22 21:00] VITALS: BP 127/75
[2022-07-22] MEDS: PALIPERIDONE 6 MG ER TABLET PO SCH (21:01)
[2022-07-22] MEDS: TraZODone HCL 100 MG TABLET PO SCH (21:02)
[2022-07-22] MEDS: SIMVASTATIN 40 MG TABLET PO SCH (21:02)
[2022-07-22 21:41] LABS: GLUCOMETER DEV NAME(LOC) 3EX.2; GLUCOSE,POINT OF CARE 220 MG/DL (70-110)
[2022-07-22 22:52] VITALS: BP 136/79
[2022-07-23 06:37] LABS: COVID AG,FIA SOURCE NASAL SWAB
[2022-07-23] MEDS: REPAGLINIDE 1 MG TABLET PO SCH ×3 (06:38→16:42)
[2022-07-23] MEDS: LEVOTHYROXINE SODIUM 25 MCG TABLET PO SCH (06:38)
[2022-07-23] MEDS: GlipiZIDE 5 MG TABLET PO SCH (06:38)
[2022-07-23] MEDS: MetFORMIN HCL 500 MG TABLET PO SCH ×2 (06:38→16:43)
[2022-07-23] MEDS: INSULIN LISPRO 100 UNITS/ML SQ PRN ×3 (06:39→16:50)
[2022-07-23 07:02] LABS: GLUCOMETER DEV NAME(LOC) 3EX.2; GLUCOSE,POINT OF CARE 106 MG/DL (70-110)
[2022-07-23 08:34] VITALS: BP 156/93
[2022-07-23] MEDS: GABAPENTIN 100 MG CAPSULE PO SCH ×2 (09:47→16:42)
[2022-07-23] MEDS: LOSARTAN POTASSIUM 25 MG TABLET PO SCH ×2 (09:47→16:42)
[2022-07-23] MEDS: DOXYCYCLINE HYCLATE 100 MG TABLET PO SCH ×2 (09:47→16:41)
[2022-07-23] MEDS: AmLODIPine BESYLATE 5 MG TABLET PO SCH (09:47)
[2022-07-23] MEDS: PROPRANOLOL HCL 20 MG TABLET PO SCH ×3 (09:47→16:41)
[2022-07-23 11:41] LABS: GLUCOMETER DEV NAME(LOC) 3EX.2; GLUCOSE,POINT OF CARE 177 MG/DL (70-110)
[2022-07-23 16:35] VITALS: BP 148/75
[2022-07-23 17:16] LABS: GLUCOMETER DEV NAME(LOC) 3E.C; GLUCOSE,POINT OF CARE 226 MG/DL (70-110)
[2022-07-23 20:41] LABS: GLUCOMETER DEV NAME(LOC) 3E.C; GLUCOSE,POINT OF CARE 130 MG/DL (70-110)
[2022-07-23] MEDS: TraZODone HCL 100 MG TABLET PO SCH (21:28)
[2022-07-23] MEDS: PALIPERIDONE 6 MG ER TABLET PO SCH (21:30)
[2022-07-23] MEDS: SIMVASTATIN 20 MG TABLET PO SCH (21:56)
[2022-07-23 22:57] VITALS: BP 162/81
[2022-07-24 05:56] LABS: GLUCOMETER DEV NAME(LOC) 3E.C; GLUCOSE,POINT OF CARE 87 MG/DL (70-110)
[2022-07-24] MEDS: MetFORMIN HCL 500 MG TABLET PO SCH ×2 (06:55→16:56)
[2022-07-24] MEDS: LEVOTHYROXINE SODIUM 25 MCG TABLET PO SCH (06:55)
[2022-07-24] MEDS: GlipiZIDE 5 MG TABLET PO SCH (06:55)
[2022-07-24] MEDS: REPAGLINIDE 1 MG TABLET PO SCH ×3 (06:55→16:56)
[2022-07-24 08:15] VITALS: BP 120/70
[2022-07-24] MEDS: AmLODIPine BESYLATE 5 MG TABLET PO SCH (08:19)
[2022-07-24] MEDS: LOSARTAN POTASSIUM 25 MG TABLET PO SCH ×2 (08:19→16:56)
[2022-07-24] MEDS: PROPRANOLOL HCL 20 MG TABLET PO SCH ×3 (08:19→16:56)
[2022-07-24] MEDS: GABAPENTIN 100 MG CAPSULE PO SCH ×2 (08:19→16:56)
[2022-07-24] MEDS: DOXYCYCLINE HYCLATE 100 MG TABLET PO SCH ×2 (08:19→16:56)
[2022-07-24] MEDS: INSULIN LISPRO 100 UNITS/ML SQ PRN ×2 (12:03→17:32)
[2022-07-24 12:06] LABS: GLUCOMETER DEV NAME(LOC) 3E.C; GLUCOSE,POINT OF CARE 166 MG/DL (70-110)
[2022-07-24 12:45] VITALS: BP 118/71
[2022-07-24 16:23] VITALS: BP 105/68
[2022-07-24 17:42] LABS: GLUCOMETER DEV NAME(LOC) 3E.C; GLUCOSE,POINT OF CARE 186 MG/DL (70-110)
[2022-07-24 20:36] LABS: GLUCOMETER DEV NAME(LOC) 3E.C; GLUCOSE,POINT OF CARE 133 MG/DL (70-110)
[2022-07-24] MEDS: SIMVASTATIN 20 MG TABLET PO SCH (20:42)
[2022-07-24] MEDS: TraZODone HCL 100 MG TABLET PO SCH (20:42)
[2022-07-24] MEDS: PALIPERIDONE 6 MG ER TABLET PO SCH (20:42)
[2022-07-24 21:29] VITALS: BP 135/57
[2022-07-25] MEDS ORDERED: PALI6TAB15 PO (00:26)
[2022-07-25 06:01] LABS: GLUCOMETER DEV NAME(LOC) 3E.C; GLUCOSE,POINT OF CARE 97 MG/DL (70-110)
[2022-07-25] MEDS: GlipiZIDE 5 MG TABLET PO SCH (06:40)
[2022-07-25] MEDS: LEVOTHYROXINE SODIUM 25 MCG TABLET PO SCH (06:40)
[2022-07-25] MEDS: REPAGLINIDE 1 MG TABLET PO SCH ×2 (06:40→11:38)
[2022-07-25 08:00] VITALS: BP 146/79
[2022-07-25] MEDS: MetFORMIN HCL 500 MG TABLET PO SCH (08:12)
[2022-07-25] MEDS: PROPRANOLOL HCL 20 MG TABLET PO SCH ×2 (08:53→13:16)
[2022-07-25] MEDS: AmLODIPine BESYLATE 5 MG TABLET PO SCH (08:53)
[2022-07-25] MEDS: DOXYCYCLINE HYCLATE 100 MG TABLET PO SCH (08:53)
[2022-07-25] MEDS: LOSARTAN POTASSIUM 25 MG TABLET PO SCH (08:53)
[2022-07-25] MEDS: GABAPENTIN 100 MG CAPSULE PO SCH (08:53)
[2022-07-25 12:06] LABS: GLUCOMETER DEV NAME(LOC) 3E.C; GLUCOSE,POINT OF CARE 172 MG/DL (70-110)
[2022-07-25 13:15] VITALS: BP 120/58
[2022-07-25] MEDS ORDERED: GABA-1216 PO (13:32)
[2022-07-25] MEDS ORDERED: DOXY-354 PO (13:32)
== END 2022-07-25 13:45 | disposition home or self-care (01) | DRG 750 ==
LOC: 3EI 21:50
PROVIDERS: ADMIT Psychiatry & Neurology Psychiatry; ATTEND Psychiatry & Neurology Psychiatry
DX: F20.9 Schizophrenia, unspecified (principal); E11.22 Type 2 diabetes mellitus with diabetic chronic kidney disease; E03.9 Hypothyroidism, unspecified; E11.65 Type 2 diabetes mellitus with hyperglycemia; E55.9 Vitamin D deficiency, unspecified; F41.9 Anxiety disorder, unspecified; G47.00 Insomnia, unspecified; I12.9 Hypertensive chronic kidney disease with stage 1 through stage 4 chronic kidney disease, or unspecified chronic kidney disease; K59.00 Constipation, unspecified; L08.9 Local infection of the skin and subcutaneous tissue, unspecified; N18.9 Chronic kidney disease, unspecified; Z20.822 Contact with and (suspected) exposure to COVID-19; M19.90 Unspecified osteoarthritis, unspecified site; Z79.899 Other long term (current) drug therapy
CPT/HCPCS: 80053; 80061; 82962; 83036; 87081

== ENCOUNTER 2022-11-01 21:24 | Emergency (ER) | payer MEDICARE, OTHER ==
[~2022-11-01] VITALS: Ht 160 cm; Wt 97.7 kg
[~2022-11-01 21:24] MED LIST changes: -ACET-2247 PO; -BENZ1TAB96 PO; -BISA-151 PO; -CANA100T PO; -CLON0.1T2 PO; -DOCU-385 PO; -FAMO20 PO; -GLIP5TAB12 PO; -HEPA500018 SQ; -IBUP-45 PO; -INSU100V SQ; -LACT10SO10 PO; -MAGN-169 PO; -NYST15PO3 TP; +PALI6TAB15 PO; -PALI6TAB6 PO; -PROP20TA18 PO; -TRAZ-257 PO; -TRAZ150T80 PO
[2022-11-01 23:42] LABS: BASOPHILS % (AUTO) 0.5 % (0.0-2.0); EOSINOPHILS % (AUTO) 2.2 % (1.0-6.0); HEMATOCRIT 38.5 % (36-46); HEMOGLOBIN 12.3 g/dL (12.0-16.0); LYMPHOCYTES # (AUTO) 2.1 K/uL (1.0-4.8); LYMPHOCYTES % (AUTO) 29.1 % (22.0-44.0); MEAN CORPUSCULAR VOLUME 81 fL (80-100); MONOCYTES # (AUTO) 0.5 K/uL (0.1-1.0); MONOCYTES % (AUTO) 6.4 % (2.0-9.0); NEUTROPHILS # (AUTO) 4.5 K/uL (1.8-7.7); NEUTROPHILS % (AUTO) 61.8 % (40.0-70.0); PLATELET COUNT (AUTO) 217 K/uL (150-450); RED BLOOD CELL COUNT(AUTO) 4.74 MIL/uL (4.00-5.20); RED CELL DISTRIBUTION WIDTH 16.8 % (11.5-14.5)
[2022-11-01 23:53] LABS: CALCIUM, TOTAL 8.9 mg/dL (8.8-10.5); CREATININE 1.11 mg/dL (0.60-1.30); POTASSIUM 4.1 mmol/L (3.5-5.1)
[2022-11-02] LABS: BILIRUBIN,TOTAL 0.4 mg/dL (0.1-1.0); TOTAL PROTEIN, SERUM 7.1 g/dL (6.4-8.2)
[2022-11-02 01:50] LABS: APPEARANCE,URINE HAZY (CLEAR); BILIRUBIN,URINE NEGATIVE (NEGATIVE); GLUCOSE, URINE (UA) >=1000 mg/dL (NEGATIVE); KETONES,URINE NEGATIVE (NEGATIVE); LEUKOCYTE ESTERASE ,URINE LARGE (NEGATIVE); NITRATE,URINE NEGATIVE (NEGATIVE); OCCULT BLOOD,URINE SMALL (NEGATIVE); PH,URINE 5.5 (5.0-8.0); PROTEIN,URINE TRACE mg/dL (NEGATIVE); SPECIFIC GRAVITIY, URINE 1.026 (1.003-1.030); UROBILINOGEN,URINE <=1.0 mg/dL (<=1.0)
[2022-11-02 01:55] LABS: SQUAMOUS EPITHELIAL CELL,UR Many /LPF (None Seen)
[2022-11-02 01:57] LABS: BACTERIA,URINE Many /HPF (None Seen)
[2022-11-02] MEDS ORDERED: LIDOCAINE/PF 1% 2 ML VIAL IM ONE (02:30)
[2022-11-02] MEDS ORDERED: CefTRIAXone 1 GM/DEXTROSE 50 ML IV ONE (02:30)
[2022-11-02] MEDS ORDERED: CefTRIAXone SODIUM 1 GM/VIAL IM ONE (02:30)
[2022-11-02 02:42] VITALS: BP 124/82
== END 2022-11-02 03:06 | disposition home or self-care (01) ==
LOC: EMS 21:24
DX: N39.0 Urinary tract infection, site not specified (principal); F20.9 Schizophrenia, unspecified; E11.22 Type 2 diabetes mellitus with diabetic chronic kidney disease; I12.0 Hypertensive chronic kidney disease with stage 5 chronic kidney disease or end stage renal disease; N18.6 End stage renal disease
CPT/HCPCS: 99285; 71045; 80053; 81001; 82550; 82962; 83880; 84484; 85025; 36415; 87086; 87186; 93005; 96372; J0696; J3490